=== PATIENT | female | born 1985 | race Caucasian/White ===

== ENCOUNTER → 2016-09-14 | Outpatient (CLI) | payer OTHER ==
[~2016-09-14] MED LIST: ACET50TA PO; ARMO90TA PO; CIPR500T89 PO; CLAR10CA3 PO; FLAG500T PO; IBUP-1114 PO; IBUP80TA PO; MULT1TAB8 PO
[2016-09-14 18:09] LABS: THYROXINE (T4) 9.5 UG/DL (4.5-12.0)
== END ==
LOC: M LAB 16:13
PROVIDERS: ATTEND Physician Assistant Medical
DX: E03.9 Hypothyroidism, unspecified (principal)

== ENCOUNTER 2016-10-17 15:17 | Emergency (ER) | payer OTHER ==
[~2016-10-17] VITALS: Ht 162.6 cm; Wt 104.3 kg
[2016-10-17] MEDS ORDERED: ARMO180T PO (15:29)
[2016-10-17] MEDS ORDERED: CLAR1TAB2 PO (15:29)
[2016-10-17] MEDS ORDERED: KEFL500C7 PO (17:13)
[2016-10-17] MEDS ORDERED: DERMABOND TOPICAL SKIN ADHESIVE TOP ONE (17:15)
[2016-10-17 17:20] VITALS: BP 134/88
== END 2016-10-17 17:30 | disposition home or self-care (01) ==
LOC: M ED 15:17
DX: S61.210A Laceration without foreign body of right index finger without damage to nail, initial encounter (principal); W29.0XXA Contact with powered kitchen appliance, initial encounter; Y92.019 Unspecified place in single-family (private) house as the place of occurrence of the external cause; Y93.G1 Activity, food preparation and clean up; Y99.8 Other external cause status; Z88.0 Allergy status to penicillin; Z88.5 Allergy status to narcotic agent; Z79.899 Other long term (current) drug therapy

== ENCOUNTER → 2016-11-09 | Outpatient (CLI) | payer OTHER ==
[~2016-11-09] MED LIST changes: +ARMO180T PO; +CLAR1TAB2 PO; +KEFL500C7 PO
== END ==
LOC: M LAB 14:52
PROVIDERS: ATTEND Physician Assistant Medical
DX: E03.9 Hypothyroidism, unspecified (principal)

== ENCOUNTER → 2017-01-08 | Outpatient (CLI) | payer OTHER ==
[2017-01-08 11:22] LABS: THYROXINE (T4) 6.4 UG/DL (4.5-12.0)
== END ==
LOC: M LAB 10:01
PROVIDERS: ATTEND Physician Assistant Medical
DX: E03.9 Hypothyroidism, unspecified (principal)

== ENCOUNTER → 2017-03-07 | Outpatient (CLI) | payer OTHER ==
[~2017-03-07] MED LIST changes: +CIPR-249 PO; -CIPR500T89 PO; +KEFL500C17 PO; -KEFL500C7 PO
== END ==
LOC: M LAB 11:59
PROVIDERS: ATTEND Physician Assistant Medical
DX: E03.9 Hypothyroidism, unspecified (principal)

== ENCOUNTER → 2017-04-25 | Outpatient (CLI) | payer OTHER ==
[2017-04-25 14:28] LABS: THYROXINE (T4) 6.9 UG/DL (4.5-12.0)
== END ==
LOC: M LAB 12:19
PROVIDERS: ATTEND Physician Assistant Medical
DX: E03.9 Hypothyroidism, unspecified (principal)

== ENCOUNTER → 2017-09-26 | Outpatient (CLI) | payer OTHER ==
[2017-09-26 14:50] LABS: T UPTAKE 26 % (30-39)
[2017-09-26 14:50] LABS: THYROXINE (T4) 7.7 UG/DL (4.5-12.0)
== END ==
LOC: M LAB 13:26
DX: E03.9 Hypothyroidism, unspecified (principal)

== ENCOUNTER → 2017-12-05 | Outpatient (REF) | payer OTHER, MEDICAID ==
[2017-12-05 11:55] LABS: BASO # 0.1 10^3/uL (0.0-0.2); BASO % 0.9 % (0.0-1.0); EOS # 0.4 10^3/uL (0.0-0.50); EOS % 3.4 % (0.0-3.0); HEMOGLOBIN 13.6 g/dl (12.0-15.5); IMMATURE GRANULOCYTE % 0.5 % (0-3.0); LYMPH # 2.4 10^3/uL (1.5-4.5); LYMPH % 21.8 % (24.0-44.0); MEAN CORPUSCULAR HEMOGLOBIN 28.2 pg (27.0-33.0); MEAN CORPUSCULAR HGB CONC 32.4 g/dl (32.0-36.5); MONO # 0.9 10^3/uL (0.0-0.8); MONO % 8.6 % (0.0-5.0); NEUTROPHILS # 7.1 10^3/uL (1.8-7.7); NEUTROPHILS % 64.8 % (36.0-66.0); PLATELET COUNT, AUTOMATED 445 10^3/uL (150-450); RED BLOOD COUNT 4.83 10^6/uL (4.00-5.40); WHITE BLOOD COUNT 10.9 10^3/uL (4.0-10.0)
[2017-12-05 14:00] LABS: ALBUMIN 4.2 GM/DL (3.2-5.2); ALBUMIN/GLOBULIN RATIO 1.17 (1.00-1.93); ALKALINE PHOSPHATASE 86 U/L (45-117); ALT/SGPT 27 U/L (12-78); ANION GAP 8 MEQ/L (8-16); AST/SGOT 14 U/L (7-37); BILIRUBIN,TOTAL 0.5 MG/DL (0.2-1.0); BLOOD UREA NITROGEN 16 MG/DL (7-18); CARBON DIOXIDE LEVEL 27 MEQ/L (21-32); CHLORIDE LEVEL 104 MEQ/L (98-107); CHOLESTEROL LEVEL 181 MG/DL (<200); CHOLESTEROL RISK RATIO 2.967 (<5); CREATININE FOR GFR 0.64 MG/DL (0.55-1.30); FREE T4 0.72 NG/DL (0.76-1.46); GLOMERULAR FILTRATION RATE > 60.0 (>60); GLUCOSE, FASTING 90 MG/DL (70-100); HDL CHOLESTEROL 61 MG/DL (>40); LDL CHOLESTEROL 88.8 MG/DL (<100); NON-HDL-C 120 MG/DL; POTASSIUM SERUM 4.1 MEQ/L (3.5-5.1); SODIUM LEVEL 139 MEQ/L (136-145); THYROXINE (T4) 7.3 UG/DL (4.5-12.0); TOTAL PROTEIN 7.8 GM/DL (6.4-8.2); TRIGLYCERIDES LEVEL 156 MG/DL (<150)
[2017-12-05 15:16] LABS: ESTIMATED AVERAGE GLUCOSE 97 MG/DL (60-110)
[2017-12-07 10:33] LABS: TOTAL T3 109.2 NG/DL (60.0-181.0)
== END ==
LOC: M LAB REF 11:08
DX: Z68.41 Body mass index [BMI] 40.0-44.9, adult (principal); R61 Generalized hyperhidrosis
CPT/HCPCS: 84443

== ENCOUNTER → 2017-12-05 | Outpatient (CLI) | payer OTHER | LOC: M EKG 09:12 | DX: Z68.41 Body mass index [BMI] 40.0-44.9, adult (principal) | CPT/HCPCS: 93005 ==

== ENCOUNTER → 2018-01-04 | Outpatient (CLI) | payer OTHER, MEDICAID ==
[2018-01-04 12:11] LABS: BASO # 0.1 10^3/uL (0.0-0.2); BASO % 0.9 % (0.0-1.0); EOS # 0.2 10^3/uL (0.0-0.50); EOS % 3.4 % (0.0-3.0); HEMATOCRIT 38.1 % (36.0-47.0); HEMOGLOBIN 12.3 g/dl (12.0-15.5); IMMATURE GRANULOCYTE % 0.2 % (0-3.0); LYMPH # 1.5 10^3/uL (1.5-4.5); LYMPH % 25.5 % (24.0-44.0); MEAN CORPUSCULAR HGB CONC 32.3 g/dl (32.0-36.5); MEAN CORPUSCULAR VOLUME 86.8 fl (80.0-96.0); MONO # 0.7 10^3/uL (0.0-0.8); MONO % 11.5 % (0.0-5.0); NEUTROPHILS # 3.4 10^3/uL (1.8-7.7); NEUTROPHILS % 58.5 % (36.0-66.0); PLATELET COUNT, AUTOMATED 322 10^3/uL (150-450); RED BLOOD COUNT 4.39 10^6/uL (4.00-5.40); RED CELL DISTRIBUTION WIDTH 15.4 % (11.5-14.5); WHITE BLOOD COUNT 5.8 10^3/uL (4.0-10.0)
[2018-01-04 12:13] LABS: HEMATOCRIT 38.1 % (36.0-47.0)
[2018-01-04 12:43] LABS: TOTAL 25(OH) VITAMIN D 84.6 NG/ML (30.0-100.0); VITAMIN B12 LEVEL 699 PG/ML (247-911)
[2018-01-04 12:50] LABS: ALBUMIN 3.7 GM/DL (3.2-5.2); ALBUMIN/GLOBULIN RATIO 1.16 (1.00-1.93); ALKALINE PHOSPHATASE 60 U/L (45-117); ALT/SGPT 30 U/L (12-78); ANION GAP 8 MEQ/L (8-16); AST/SGOT 15 U/L (7-37); BILIRUBIN,TOTAL 0.5 MG/DL (0.2-1.0); BLOOD UREA NITROGEN 9 MG/DL (7-18); CALCIUM LEVEL 8.6 MG/DL (8.5-10.1); CARBON DIOXIDE LEVEL 27 MEQ/L (21-32); CHLORIDE LEVEL 109 MEQ/L (98-107); CREATININE FOR GFR 0.58 MG/DL (0.55-1.30); FERRITIN 183 NG/ML (8-252); GLOMERULAR FILTRATION RATE > 60.0 (>60); GLUCOSE, FASTING 84 MG/DL (70-100); IRON (FE) 48 UG/DL (50-170); MAGNESIUM LEVEL 2.2 MG/DL (1.8-2.4); PERCENT SATURATION 19.9 % (13.2-45.0); PHOSPHORUS LEVEL 3.2 MG/DL (2.5-4.9); POTASSIUM SERUM 3.6 MEQ/L (3.5-5.1); SODIUM LEVEL 144 MEQ/L (136-145); TOTAL IRON BINDING CAPACITY 241 UG/DL (250-450); TOTAL PROTEIN 6.9 GM/DL (6.4-8.2)
[2018-01-04 13:30] LABS: ESTIMATED AVERAGE GLUCOSE 88 MG/DL (60-110); HEMOGLOBIN A1c 4.7 %
[2018-01-04 14:19] LABS: PRETREATED FOLATE FOR RBCFOL 15.2 NG/ML; RBC FOLATE 837.8 NG/ML (280-791)
== END ==
LOC: M LAB 11:07
DX: K91.2 Postsurgical malabsorption, not elsewhere classified (principal); Z98.84 Bariatric surgery status; E55.9 Vitamin D deficiency, unspecified
CPT/HCPCS: 83550

== ENCOUNTER 2018-05-02 20:32 | Emergency (ER) | payer OTHER | END 2018-05-03 00:40 | disposition home or self-care (01) | LOC: M ED 05-03 00:40 | DX: S60.221A Contusion of right hand, initial encounter (principal); W22.8XXA Striking against or struck by other objects, initial encounter; Y92.830 Public park as the place of occurrence of the external cause; Z88.0 Allergy status to penicillin; Z88.5 Allergy status to narcotic agent; J30.89 Other allergic rhinitis | CPT/HCPCS: 73130 ==

== ENCOUNTER → 2018-05-15 | Outpatient (REF) | payer OTHER ==
[2018-05-15 19:20] LABS: FREE THYROXINE INDEX 1.7 % (1.3-4.8); T UPTAKE 30 % (30-39); THYROXINE (T4) 5.6 UG/DL (4.5-12.0)
== END ==
LOC: M LAB REF 17:49
DX: E03.9 Hypothyroidism, unspecified (principal)

== ENCOUNTER → 2018-06-05 | Outpatient (CLI) | payer OTHER ==
[2018-06-05 11:47] LABS: BASO # 0.1 10^3/uL (0.0-0.2); BASO % 0.8 % (0.0-1.0); EOS # 0.1 10^3/uL (0.0-0.50); HEMATOCRIT 41.2 % (36.0-47.0); HEMOGLOBIN 13.4 g/dl (12.0-15.5); IMMATURE GRANULOCYTE % 0.4 % (0-3.0); LYMPH # 1.9 10^3/uL (1.5-4.5); LYMPH % 26.4 % (24.0-44.0); MEAN CORPUSCULAR HEMOGLOBIN 29.1 pg (27.0-33.0); MEAN CORPUSCULAR HGB CONC 32.5 g/dl (32.0-36.5); MEAN CORPUSCULAR VOLUME 89.6 fl (80.0-96.0); MONO # 0.6 10^3/uL (0.0-0.8); MONO % 8.2 % (0.0-5.0); NEUTROPHILS # 4.4 10^3/uL (1.8-7.7); NEUTROPHILS % 62.2 % (36.0-66.0); PLATELET COUNT, AUTOMATED 406 10^3/uL (150-450); RED CELL DISTRIBUTION WIDTH 13.2 % (11.5-14.5); WHITE BLOOD COUNT 7.1 10^3/uL (4.0-10.0)
[2018-06-05 12:03] LABS: HEMATOCRIT 41.2 % (36.0-47.0)
[2018-06-05 12:51] LABS: ALBUMIN 3.9 GM/DL (3.2-5.2); ALBUMIN/GLOBULIN RATIO 1.08 (1.00-1.93); ALKALINE PHOSPHATASE 105 U/L (45-117); ALT/SGPT 25 U/L (12-78); ANION GAP 9 MEQ/L (8-16); AST/SGOT 15 U/L (7-37); BILIRUBIN,TOTAL 0.8 MG/DL (0.2-1.0); BLOOD UREA NITROGEN 9 MG/DL (7-18); CALCIUM LEVEL 8.8 MG/DL (8.5-10.1); CARBON DIOXIDE LEVEL 25 MEQ/L (21-32); CHLORIDE LEVEL 106 MEQ/L (98-107); CREATININE FOR GFR 0.58 MG/DL (0.55-1.30); FERRITIN 157 NG/ML (8-252); GLOMERULAR FILTRATION RATE > 60.0 (>60); GLUCOSE, FASTING 97 MG/DL (70-100); IRON (FE) 96 UG/DL (50-170); PERCENT SATURATION 29.2 % (13.2-45.0); PHOSPHORUS LEVEL 3.7 MG/DL (2.5-4.9); POTASSIUM SERUM 4.6 MEQ/L (3.5-5.1); SODIUM LEVEL 140 MEQ/L (136-145); TOTAL 25(OH) VITAMIN D 79.1 NG/ML (30.0-100.0); TOTAL IRON BINDING CAPACITY 329 UG/DL (250-450); TOTAL PROTEIN 7.5 GM/DL (6.4-8.2)
[2018-06-05 13:15] LABS: ESTIMATED AVERAGE GLUCOSE 97 MG/DL (60-110)
== END ==
LOC: M LAB 11:06
DX: K90.2 Blind loop syndrome, not elsewhere classified (principal)
CPT/HCPCS: 83550

== ENCOUNTER → 2018-08-15 | Outpatient (REF) | payer OTHER ==
[~2018-08-15] MED LIST changes: -ACET50TA PO; +MAPA500T2 PO
[2018-08-17 15:11] LABS: HPV HYBRID CAPTURE II Negative (Negative)
== END ==
LOC: M LAB REF 11:50
PROVIDERS: ATTEND Nurse Practitioner Family
DX: Z12.4 Encounter for screening for malignant neoplasm of cervix (principal)

== ENCOUNTER → 2018-09-24 | Outpatient (REF) | payer OTHER, MEDICAID | LOC: M LAB REF 18:51 | PROVIDERS: ATTEND Nurse Practitioner Family | DX: Z53.9 Procedure and treatment not carried out, unspecified reason (principal) ==

== ENCOUNTER → 2018-10-08 | Outpatient (REF) | payer OTHER, MEDICAID | LOC: M LAB REF 17:32 | PROVIDERS: ATTEND Nurse Practitioner Family | DX: E03.9 Hypothyroidism, unspecified (principal) ==

== ENCOUNTER → 2019-01-23 | Outpatient (CLI) | payer MEDICAID, OTHER ==
[~2019-01-23] MED LIST changes: +THYR60TA PO
[2019-01-23 14:56] LABS: BASO # 0.1 10^3/uL (0.0-0.2); BASO % 0.5 % (0.0-1.0); EOS # 0.2 10^3/uL (0.0-0.50); EOS % 1.5 % (0.0-3.0); HEMATOCRIT 40.7 % (36.0-47.0); HEMOGLOBIN 13.4 g/dl (12.0-15.5); LYMPH # 1.6 10^3/uL (1.5-4.5); LYMPH % 12.7 % (24.0-44.0); MEAN CORPUSCULAR HEMOGLOBIN 30.2 pg (27.0-33.0); MEAN CORPUSCULAR HGB CONC 32.9 g/dl (32.0-36.5); MEAN CORPUSCULAR VOLUME 91.9 fl (80.0-96.0); MONO # 0.9 10^3/uL (0.0-0.8); MONO % 7.6 % (0.0-5.0); NEUTROPHILS # 9.5 10^3/uL (1.8-7.7); NEUTROPHILS % 77.2 % (36.0-66.0); PLATELET COUNT, AUTOMATED 358 10^3/uL (150-450); RED BLOOD COUNT 4.43 10^6/uL (4.00-5.40); WHITE BLOOD COUNT 12.3 10^3/uL (4.0-10.0)
[2019-01-23 15:01] LABS: HEMATOCRIT 40.7 % (36.0-47.0)
[2019-01-23 15:20] LABS: HEMOGLOBIN A1c 5.1 %
[2019-01-23 15:24] LABS: ALBUMIN 3.7 GM/DL (3.2-5.2); ALT/SGPT 18 U/L (12-78); BILIRUBIN,TOTAL 1.1 MG/DL (0.2-1.0); BLOOD UREA NITROGEN 11 MG/DL (7-18); CARBON DIOXIDE LEVEL 26 MEQ/L (21-32); CHLORIDE LEVEL 103 MEQ/L (98-107); CREATININE FOR GFR 0.65 MG/DL (0.55-1.30); FERRITIN 169 NG/ML (8-252); GLOMERULAR FILTRATION RATE > 60.0 (>60); GLUCOSE, FASTING 89 MG/DL (70-100); IRON (FE) 29 UG/DL (50-170); PERCENT SATURATION 8.9 % (13.2-45.0); PHOSPHORUS LEVEL 4.3 MG/DL (2.5-4.9); POTASSIUM SERUM 4.5 MEQ/L (3.5-5.1); SODIUM LEVEL 139 MEQ/L (136-145); TOTAL IRON BINDING CAPACITY 325 UG/DL (250-450); TOTAL PROTEIN 7.5 GM/DL (6.4-8.2)
[2019-01-23 15:32] LABS: TOTAL 25(OH) VITAMIN D 101.9 NG/ML (30.0-100.0); VITAMIN B12 LEVEL 1007 PG/ML (247-911)
== END ==
LOC: M LAB 14:15
PROVIDERS: ATTEND Physician Assistant Surgical
DX: K91.2 Postsurgical malabsorption, not elsewhere classified (principal); Z98.84 Bariatric surgery status; E55.9 Vitamin D deficiency, unspecified

== ENCOUNTER 2019-01-27 16:46 | Emergency (ER) | payer OTHER ==
[~2019-01-27] VITALS: Ht 162.6 cm; Wt 77.3 kg
[~2019-01-27 16:46] MED LIST changes: -THYR60TA PO
[2019-01-27] MEDS ORDERED: THYR60TA PO (17:14)
[2019-01-27 19:03] VITALS: BP 128/79
== END 2019-01-27 19:04 | disposition home or self-care (01) ==
LOC: M ED 16:46
DX: Z04.1 Encounter for examination and observation following transport accident (principal); V03.10XA Pedestrian on foot injured in collision with car, pick-up truck or van in traffic accident, initial encounter; Y92.410 Unspecified street and highway as the place of occurrence of the external cause; M25.552 Pain in left hip; J45.909 Unspecified asthma, uncomplicated; E03.9 Hypothyroidism, unspecified; Z79.899 Other long term (current) drug therapy; Z88.0 Allergy status to penicillin; Z88.5 Allergy status to narcotic agent

== ENCOUNTER 2019-03-03 18:14 | Emergency (ER) | payer OTHER ==
[~2019-03-03] VITALS: Ht 162.6 cm; Wt 75.5 kg
[~2019-03-03 18:14] MED LIST changes: +THYR60TA PO
[2019-03-03 20:04] LABS: HCG, SERUM QUALITATIVE POSITIVE (NEGATIVE)
[2019-03-03 20:23] LABS: BASO # 0.1 10^3/uL (0.0-0.2); BASO % 0.5 % (0.0-1.0); EOS % 0.3 % (0.0-3.0); HEMATOCRIT 37.9 % (36.0-47.0); LYMPH % 16.3 % (24.0-44.0); MEAN CORPUSCULAR HGB CONC 34.3 g/dl (32.0-36.5); MEAN CORPUSCULAR VOLUME 87.5 fl (80.0-96.0); MONO # 0.8 10^3/uL (0.0-0.8); MONO % 6.3 % (0.0-5.0); NEUTROPHILS # 9.2 10^3/uL (1.8-7.7); NEUTROPHILS % 76.4 % (36.0-66.0); PLATELET COUNT, AUTOMATED 422 10^3/uL (150-450); RED BLOOD COUNT 4.33 10^6/uL (4.00-5.40); WHITE BLOOD COUNT 12.1 10^3/uL (4.0-10.0)
[2019-03-03 20:26] LABS: ALBUMIN 3.9 GM/DL (3.2-5.2); ALT/SGPT 20 U/L (12-78); BLOOD UREA NITROGEN 12 MG/DL (7-18); CALCIUM LEVEL 9.4 MG/DL (8.5-10.1); CARBON DIOXIDE LEVEL 26 MEQ/L (21-32); CHLORIDE LEVEL 107 MEQ/L (98-107); CREATININE FOR GFR 0.52 MG/DL (0.55-1.30); GLOMERULAR FILTRATION RATE > 60.0 (>60); GLUCOSE, FASTING 89 MG/DL (70-100); POTASSIUM SERUM 4.7 MEQ/L (3.5-5.1); SODIUM LEVEL 140 MEQ/L (136-145); TOTAL PROTEIN 7.2 GM/DL (6.4-8.2)
[2019-03-03] MEDS ORDERED: cefTRIAXone SOD 250 MG VIAL (J0696) IM ONE (21:45)
[2019-03-03] MEDS ORDERED: metroNIDAZOLE (FLAGYL) 500 MG TAB PO ONE (21:45)
[2019-03-03] MEDS ORDERED: LIDOCAINE 1% SDV 5 ML VIAL DILUENT ONE (21:45)
[2019-03-03] MEDS ORDERED: AZITHROMYCIN 250 MG TAB PO ONE (21:45)
[2019-03-03 21:58] VITALS: BP 118/78
[2019-03-05 11:15] LABS: HEPATITIS B SURFACE ANTIBODY NEGATIVE (POSITIVE)
[2019-03-05 11:26] LABS: HEPATITIS B SURFACE ANTIGEN NEGATIVE (NEGATIVE)
[2019-03-05 11:53] LABS: HEPATITIS C VIRUS ABY INDEX 0.1 INDEX (<0.8); HIV 1&2 SCREEN CENTAUR NEGATIVE (NEGATIVE)
== END 2019-03-03 22:44 | disposition home or self-care (01) ==
LOC: M ED 18:14 → EEVIPCON 18:14 → M ED 22:44
DX: T74.21XA Adult sexual abuse, confirmed, initial encounter (principal); Y07.9 Unspecified perpetrator of maltreatment and neglect; Y92.830 Public park as the place of occurrence of the external cause; Z32.01 Encounter for pregnancy test, result positive; Z98.84 Bariatric surgery status; Z79.899 Other long term (current) drug therapy; Z88.5 Allergy status to narcotic agent; Z88.0 Allergy status to penicillin; J30.89 Other allergic rhinitis
CPT/HCPCS: 36415; 80053; 84702; 84703; 85025; 86706; 86780; 86803; 87340; 87389; 87529; 96372; 99284; J0696

== ENCOUNTER → 2019-04-28 | Outpatient (CLI) | payer OTHER ==
[2019-04-28 12:48] LABS: BASO # 0.1 10^3/uL (0.0-0.2); BASO % 0.9 % (0.0-1.0); EOS # 0.2 10^3/uL (0.0-0.5); EOS % 2.2 % (0.0-3.0); HEMATOCRIT 40.4 % (36.0-47.0); HEMOGLOBIN 13.4 g/dl (12.0-15.5); LYMPH # 2.1 10^3/uL (1.5-5.0); LYMPH % 27.4 % (24.0-44.0); MEAN CORPUSCULAR HEMOGLOBIN 30.7 pg (27.0-33.0); MEAN CORPUSCULAR HGB CONC 33.2 g/dl (32.0-36.5); MEAN CORPUSCULAR VOLUME 92.7 fl (80.0-96.0); MONO # 0.9 10^3/uL (0.0-0.8); MONO % 11.8 % (0.0-5.0); NEUTROPHILS # 4.4 10^3/uL (1.5-8.5); NEUTROPHILS % 57.4 % (36.0-66.0); PLATELET COUNT, AUTOMATED 352 10^3/uL (150-450); RED BLOOD COUNT 4.36 10^6/uL (4.00-5.40); WHITE BLOOD COUNT 7.7 10^3/uL (4.0-10.0)
[2019-04-28 13:18] LABS: ALBUMIN 3.9 GM/DL (3.2-5.2); ALT/SGPT 23 U/L (12-78); BLOOD UREA NITROGEN 15 MG/DL (7-18); CALCIUM LEVEL 9.2 MG/DL (8.5-10.1); CARBON DIOXIDE LEVEL 27 MEQ/L (21-32); CHLORIDE LEVEL 105 MEQ/L (98-107); CHOLESTEROL LEVEL 189 MG/DL (<200); CHOLESTEROL RISK RATIO 2.625 (<5); CREATININE FOR GFR 0.68 MG/DL (0.55-1.30); FREE T4 0.71 NG/DL (0.76-1.46); GLOMERULAR FILTRATION RATE > 60.0 (>60); GLUCOSE, FASTING 68 MG/DL (70-100); HDL CHOLESTEROL 72 MG/DL (>40); LDL CHOLESTEROL 105 MG/DL (<100); NON-HDL-C 117 MG/DL; POTASSIUM SERUM 4.5 MEQ/L (3.5-5.1); SODIUM LEVEL 141 MEQ/L (136-145); TOTAL PROTEIN 6.9 GM/DL (6.4-8.2); TRIGLYCERIDES LEVEL 60 MG/DL (<150)
== END ==
LOC: M LAB 11:50
PROVIDERS: ATTEND Nurse Practitioner Family
DX: Z13.9 Encounter for screening, unspecified (principal); E78.5 Hyperlipidemia, unspecified; E03.9 Hypothyroidism, unspecified

== ENCOUNTER → 2019-07-24 | Outpatient (REF) | payer OTHER ==
[2019-07-24 14:13] LABS: BASO # 0.1 10^3/uL (0.0-0.2); EOS # 0.3 10^3/uL (0.0-0.5); EOS % 4.3 % (0.0-3.0); HEMOGLOBIN 12.7 g/dl (12.0-15.5); LYMPH # 2.2 10^3/uL (1.5-5.0); LYMPH % 32.3 % (24.0-44.0); MEAN CORPUSCULAR HEMOGLOBIN 29.3 pg (27.0-33.0); MEAN CORPUSCULAR HGB CONC 32.6 g/dl (32.0-36.5); MEAN CORPUSCULAR VOLUME 89.9 fl (80.0-96.0); MONO # 0.7 10^3/uL (0.0-0.8); NEUTROPHILS # 3.6 10^3/uL (1.5-8.5); NEUTROPHILS % 52.1 % (36.0-66.0); PLATELET COUNT, AUTOMATED 426 10^3/uL (150-450); RED BLOOD COUNT 4.34 10^6/uL (4.00-5.40); WHITE BLOOD COUNT 6.8 10^3/uL (4.0-10.0)
[2019-07-24 14:20] LABS: ALBUMIN 3.6 GM/DL (3.2-5.2); ALT/SGPT 24 U/L (12-78); BILIRUBIN,TOTAL 1.1 MG/DL (0.2-1.0); BLOOD UREA NITROGEN 11 MG/DL (7-18); CARBON DIOXIDE LEVEL 28 MEQ/L (21-32); CHLORIDE LEVEL 103 MEQ/L (98-107); CHOLESTEROL LEVEL 169 MG/DL (<200); CHOLESTEROL RISK RATIO 2.725 (<5); CREATININE FOR GFR 0.64 MG/DL (0.55-1.30); FREE T4 0.79 NG/DL (0.76-1.46); GLOMERULAR FILTRATION RATE > 60.0 (>60); GLUCOSE, FASTING 87 MG/DL (70-100); HDL CHOLESTEROL 62 MG/DL (>40); LDL CHOLESTEROL 96 MG/DL (<100); NON-HDL-C 107 MG/DL; POTASSIUM SERUM 4.1 MEQ/L (3.5-5.1); SODIUM LEVEL 139 MEQ/L (136-145); TRIGLYCERIDES LEVEL 57 MG/DL (<150)
== END ==
LOC: M LAB REF 13:45
PROVIDERS: ATTEND Nurse Practitioner Family
DX: E66.09 Other obesity due to excess calories (principal); Z13.9 Encounter for screening, unspecified; E78.5 Hyperlipidemia, unspecified

== ENCOUNTER → 2019-07-31 | Outpatient (REF) | payer OTHER ==
[2019-07-31 18:56] LABS: FREE T4 0.92 NG/DL (0.76-1.46); THYROID STIMULATING HORMONE 2.45 uIU/ML (0.358-3.740); TOTAL T3 178.5 NG/DL (60.0-181.0)
== END ==
LOC: M LAB REF 17:24
PROVIDERS: ATTEND Nurse Practitioner Family
DX: E03.9 Hypothyroidism, unspecified (principal)

== ENCOUNTER → 2019-12-01 | Outpatient (REF) | payer OTHER, MEDICAID ==
[2019-12-01 13:12] LABS: BASO % 0.7 % (0.0-1.0); EOS # 0.2 10^3/uL (0.0-0.5); HEMATOCRIT 40.3 % (36.0-47.0); HEMOGLOBIN 12.9 g/dl (12.0-15.5); LYMPH # 1.8 10^3/uL (1.5-5.0); LYMPH % 30.1 % (24.0-44.0); MEAN CORPUSCULAR HEMOGLOBIN 29.3 pg (27.0-33.0); MEAN CORPUSCULAR VOLUME 91.4 fl (80.0-96.0); MONO # 0.7 10^3/uL (0.0-0.8); MONO % 10.9 % (0.0-5.0); NEUTROPHILS # 3.3 10^3/uL (1.5-8.5); NEUTROPHILS % 55.1 % (36.0-66.0); PLATELET COUNT, AUTOMATED 339 10^3/uL (150-450); RED BLOOD COUNT 4.41 10^6/uL (4.00-5.40)
[2019-12-01 13:28] LABS: ALBUMIN 3.8 GM/DL (3.2-5.2); ALT/SGPT 22 U/L (12-78); BILIRUBIN,TOTAL 1.2 MG/DL (0.2-1.0); BLOOD UREA NITROGEN 16 MG/DL (7-18); CALCIUM LEVEL 9.2 MG/DL (8.5-10.1); CARBON DIOXIDE LEVEL 28 MEQ/L (21-32); CHLORIDE LEVEL 103 MEQ/L (98-107); CHOLESTEROL LEVEL 193 MG/DL (<200); CHOLESTEROL RISK RATIO 2.443 (<5); CREATININE FOR GFR 0.58 MG/DL (0.55-1.30); FREE T4 0.79 NG/DL (0.76-1.46); GLOMERULAR FILTRATION RATE > 60.0 (>60); GLUCOSE, FASTING 90 MG/DL (70-100); HDL CHOLESTEROL 79 MG/DL (>40); LDL CHOLESTEROL 106 MG/DL (<100); NON-HDL-C 114 MG/DL; POTASSIUM SERUM 4.2 MEQ/L (3.5-5.1); SODIUM LEVEL 136 MEQ/L (136-145); TOTAL PROTEIN 7.3 GM/DL (6.4-8.2); TRIGLYCERIDES LEVEL 42 MG/DL (<150)
== END ==
LOC: M LAB REF 12:25
PROVIDERS: ATTEND Nurse Practitioner Family
DX: E03.9 Hypothyroidism, unspecified (principal); E66.09 Other obesity due to excess calories; E78.5 Hyperlipidemia, unspecified; Z13.9 Encounter for screening, unspecified; F41.8 Other specified anxiety disorders

== ENCOUNTER → 2020-06-25 | Outpatient (REF) | payer OTHER, MEDICAID ==
[2020-06-25 17:21] LABS: BASO # 0.1 10^3/uL (0.0-0.2); BASO % 0.7 % (0.0-1.0); EOS # 0.1 10^3/uL (0.0-0.5); HEMATOCRIT 38.2 % (36.0-47.0); HEMOGLOBIN 12.7 g/dl (12.0-15.5); LYMPH # 1.7 10^3/uL (1.5-5.0); MEAN CORPUSCULAR HEMOGLOBIN 30.2 pg (27.0-33.0); MEAN CORPUSCULAR HGB CONC 33.2 g/dl (32.0-36.5); MEAN CORPUSCULAR VOLUME 90.7 fl (80.0-96.0); MONO # 0.8 10^3/uL (0.0-0.8); MONO % 9.7 % (0.0-5.0); NEUTROPHILS # 5.5 10^3/uL (1.5-8.5); NEUTROPHILS % 67.2 % (36.0-66.0); PLATELET COUNT, AUTOMATED 365 10^3/uL (150-450); RED BLOOD COUNT 4.21 10^6/uL (4.00-5.40); WHITE BLOOD COUNT 8.1 10^3/uL (4.0-10.0)
[2020-06-25 17:35] LABS: ALT/SGPT 21 U/L (12-78); BILIRUBIN,TOTAL 1.4 MG/DL (0.2-1.0); BLOOD UREA NITROGEN 9 MG/DL (7-18); CALCIUM LEVEL 9.3 MG/DL (8.5-10.1); CARBON DIOXIDE LEVEL 28 MEQ/L (21-32); CHLORIDE LEVEL 101 MEQ/L (98-107); CHOLESTEROL LEVEL 188 MG/DL (<200); CHOLESTEROL RISK RATIO 2.211 (<5); CREATININE FOR GFR 0.57 MG/DL (0.55-1.30); FERRITIN 59 NG/ML (8-252); FREE T4 0.87 NG/DL (0.76-1.46); GLOMERULAR FILTRATION RATE > 60.0 (>60); GLUCOSE, FASTING 84 MG/DL (70-100); HDL CHOLESTEROL 85 MG/DL (>40); IRON (FE) 106 UG/DL (50-170); LDL CHOLESTEROL 89 MG/DL (<100); NON-HDL-C 103 MG/DL; PERCENT SATURATION 27.9 % (13.2-45.0); SODIUM LEVEL 135 MEQ/L (136-145); TOTAL IRON BINDING CAPACITY 380 UG/DL (250-450); TOTAL PROTEIN 7.4 GM/DL (6.4-8.2); TRIGLYCERIDES LEVEL 70 MG/DL (<150)
[2020-06-25 17:37] LABS: TOTAL 25(OH) VITAMIN D 70.1 NG/ML (30.0-100.0); VITAMIN B12 LEVEL > 2000 PG/ML
[2020-06-25 17:39] LABS: FOLATE 23.2 NG/ML
== END ==
LOC: M LAB REF 16:39
PROVIDERS: ATTEND Nurse Practitioner Family
DX: Z98.84 Bariatric surgery status (principal); E66.09 Other obesity due to excess calories; E78.5 Hyperlipidemia, unspecified; E03.9 Hypothyroidism, unspecified; F41.8 Other specified anxiety disorders

== ENCOUNTER → 2020-07-28 | Outpatient (REF) | payer OTHER ==
[2020-07-28 17:20] LABS: FREE T4 0.82 NG/DL (0.76-1.46); HEMATOCRIT 37.6 % (36.0-47.0); HEMOGLOBIN 11.9 g/dl (12.0-15.5); MEAN CORPUSCULAR HEMOGLOBIN 28.9 pg (27.0-33.0); MEAN CORPUSCULAR HGB CONC 31.6 g/dl (32.0-36.5); MEAN CORPUSCULAR VOLUME 91.3 fl (80.0-96.0); PLATELET COUNT, AUTOMATED 347 10^3/uL (150-450); RED BLOOD COUNT 4.12 10^6/uL (4.00-5.40); THYROID STIMULATING HORMONE 0.887 uIU/ML (0.358-3.740); WHITE BLOOD COUNT 10.8 10^3/uL (4.0-10.0)
[2020-07-28 18:03] LABS: HEPATITIS C VIRUS ABY INDEX < 0.0 INDEX (<0.8); HIV 1&2 SCREEN CENTAUR NEGATIVE (NEGATIVE)
== END ==
LOC: M PLALAB 14:27
PROVIDERS: ATTEND Obstetrics & Gynecology
DX: Z3A.11 11 weeks gestation of pregnancy (principal)

== ENCOUNTER → 2020-08-06 | Outpatient (CLI) | payer OTHER ==
--- NOTE | 2020-08-06 16:53 | REP ---
INDICATION: CONFIRM CHORIONICITY,TWINS. TECHNIQUE: Real-time sonographic evaluation of the gravid uterus performed. FINDINGS: There is a living intrauterine twin gestation, diamniotic dichorionic. Estimated gestational age is13 weeks 1 day, EDC 02/10/2021. Today's measurements indicate appropriate concordant growth. Closed cervical length is measured at 4.2 cm. Fetus a: Presentation: Cephalic, on the left. Placenta anterior, grade 0, without evidence of placenta previa. heart rate is recorded at 165 beats per minute. Amniotic fluid is subjectively normal. Kershaw-rump length 70 mm corresponds to 13 weeks 1 day gestational age. Fetus b: Presentation: Transverse anteriorly to the right Placenta posterior, grade 0, without evidence of placenta previa. heart rate is recorded at 167 beats per minute. Amniotic fluid is subjectively normal. Kershaw-rump length 61 mm corresponds to 12 weeks 4 days gestational age. IMPRESSION: Viable diamniotic dichorionic intrauterine twin gestation as above. <Electronically signed by Jacky Frazier > 08/06/20 [id number]
== END ==
LOC: M WHC 14:42
PROVIDERS: ATTEND Obstetrics & Gynecology
DX: Z3A.11 11 weeks gestation of pregnancy (principal)

== ENCOUNTER → 2020-08-25 | Outpatient (CLI) | payer OTHER | LOC: M WHC 13:57 | PROVIDERS: ATTEND Obstetrics & Gynecology | DX: Z3A.15 15 weeks gestation of pregnancy (principal); Z53.9 Procedure and treatment not carried out, unspecified reason ==

== ENCOUNTER → 2020-08-30 | Outpatient (REF) | payer OTHER ==
[2020-08-30 13:00] LABS: APPEARANCE, URINE CLEAR (CLEAR); BACTERIA, URINE AUTO NEGATIVE (NEGATIVE); BILIRUBIN, URINE AUTO NEGATIVE (NEGATIVE); BLOOD, URINE BLOOD NEGATIVE (NEGATIVE); COLOR, URINE STRAW (YELLOW); GLUCOSE, URINE (UA) AUTO NEGATIVE (NEGATIVE); KETONE, URINE AUTO NEGATIVE (NEGATIVE); LEUKOCYTE ESTERASE, URINE AUTO 2+ (NEGATIVE); NITRITE, URINE AUTO NEGATIVE (NEGATIVE); PROTEIN, URINE AUTO NEGATIVE (NEGATIVE); RBC, URINE AUTO 0 /HPF (0-3); SPECIFIC GRAVITY URINE AUTO 1.008 (1.002-1.035); SQUAMOUS EPITHELIAL CELL UR AU 3 /HPF (0-6); UROBILINOGEN, URINE AUTO 0.2 mg/dL (0.0-2.0); WBC, URINE AUTO 2 /HPF (0-3)
[2020-08-30 17:08] LABS: ALBUMIN 3.1 GM/DL (3.2-5.2); ALT/SGPT 15 U/L (12-78); BILIRUBIN,TOTAL 0.7 MG/DL (0.2-1.0); BLOOD UREA NITROGEN 9 MG/DL (7-18); CALCIUM LEVEL 8.7 MG/DL (8.5-10.1); CARBON DIOXIDE LEVEL 27 MEQ/L (21-32); CHLORIDE LEVEL 105 MEQ/L (98-107); CHOLESTEROL LEVEL 222 MG/DL (<200); CHOLESTEROL RISK RATIO 2.288 (<5); CREATININE FOR GFR 0.54 MG/DL (0.55-1.30); FERRITIN 20 NG/ML (8-252); FOLATE > 24.0 NG/ML; GLOMERULAR FILTRATION RATE > 60.0 (>60); GLUCOSE, FASTING 99 MG/DL (70-100); HDL CHOLESTEROL 97 MG/DL (>40); IRON (FE) 65 UG/DL (50-170); LDL CHOLESTEROL 106 MG/DL (<100); NON-HDL-C 125 MG/DL; PERCENT SATURATION 17.2 % (13.2-45.0); POTASSIUM SERUM 3.8 MEQ/L (3.5-5.1); SODIUM LEVEL 137 MEQ/L (136-145); TOTAL IRON BINDING CAPACITY 379 UG/DL (250-450); TOTAL PROTEIN 6.4 GM/DL (6.4-8.2); TRIGLYCERIDES LEVEL 97 MG/DL (<150); VITAMIN B12 LEVEL > 2000 PG/ML
[2020-08-30 17:13] LABS: BASO # 0.1 10^3/uL (0.0-0.2); BASO % 0.5 % (0.0-1.0); EOS # 0.1 10^3/uL (0.0-0.5); EOS % 1.4 % (0.0-3.0); HEMATOCRIT 35.2 % (36.0-47.0); HEMOGLOBIN 11.5 g/dl (12.0-15.5); LYMPH # 1.5 10^3/uL (1.5-5.0); LYMPH % 16.3 % (24.0-44.0); MEAN CORPUSCULAR HEMOGLOBIN 30.4 pg (27.0-33.0); MEAN CORPUSCULAR HGB CONC 32.7 g/dl (32.0-36.5); MEAN CORPUSCULAR VOLUME 93.1 fl (80.0-96.0); MONO # 0.6 10^3/uL (0.0-0.8); MONO % 6.6 % (0.0-5.0); NEUTROPHILS % 74.8 % (36.0-66.0); PLATELET COUNT, AUTOMATED 283 10^3/uL (150-450); RED BLOOD COUNT 3.78 10^6/uL (4.00-5.40); WHITE BLOOD COUNT 9.3 10^3/uL (4.0-10.0)
[2020-08-30 17:23] LABS: TOTAL 25(OH) VITAMIN D 58.6 NG/ML (30.0-100.0)
[2020-08-30 18:20] LABS: HEMOGLOBIN A1c 4.7 %
== END ==
LOC: M LAB REF 11:35
PROVIDERS: ATTEND Nurse Practitioner Family
DX: E78.5 Hyperlipidemia, unspecified (principal); Z98.84 Bariatric surgery status; E66.09 Other obesity due to excess calories; Z13.9 Encounter for screening, unspecified; F41.8 Other specified anxiety disorders; E03.9 Hypothyroidism, unspecified

== ENCOUNTER → 2020-09-22 | Outpatient (CLI) | payer OTHER ==
--- NOTE | 2020-09-22 16:24 | REP ---
INDICATION: ANATOMY - TWINS. Supervision of . Multiple gestation. COMPARISON: Comparison study August 06, 2020.. TECHNIQUE: Transabdominal obstetric sonography. FINDINGS: Scanning demonstrates a viable twin intrauterine gestation. Closed cervical length measured transabdominally is 4.0 cm. Fetus A is cephalic along the maternal left with heart rate 160 beats per minute. Anterior grade 1 placenta without evidence of previa. Amniotic fluid is subjectively normal. Four-chamber heart and left and right ventricular outflow tract views on fetus A are less than optimally achieved due to position. The following anatomic structures are identified in fetus A and are felt to be unremarkable: cranium, intracranial anatomy, nuchal fold face and profile nose and lips, diaphragm, left-sided stomach, abdominal wall cord insertion, right and left kidney, urinary bladder, spine, upper and lower extremities, three-vessel cord. Biometry chart fetus a: BPD 4.7 cm, 20 weeks 2 days Head circumference 16.6 cm, 19 weeks 2 days Abdominal circumference 13.6 cm, 19 weeks 0 days Femur length 3.0 cm, 19 weeks 2 days Humeral length 3.0 cm, 19 weeks 5 days HC AC ratio normal 1.22 Cephalic index normal 0.82 Estimated weight 279 g, 0 lb 9 oz, 26 percentile for 19 weeks 4 days Fetus B is breech in lie along the maternal right side. heart rate 167 beats per minute. Posterior grade 1 placenta without evidence of previa. Amniotic fluid is subjectively normal. Three-vessel umbilical cord. No anomaly is seen in fetus B. The following anatomic structures in fetus B are identified felt to be unremarkable: cranium and intracranial anatomy, face and profile nose and lips, four-chamber heart with left and right ventricular outflow tract views, diaphragm, left-sided stomach, abdominal wall cord insertion, kidneys and urinary bladder, spine, upper and lower extremities. Biometry chart fetus B: BPD 4.5 cm, 19 weeks 5 days Head circumference 16.2 cm, 19 weeks 0 days Abdominal circumference 14.3 cm, 19 weeks 4 days Femur length 3.1 cm, 19 weeks 4 days Humeral length 3.1 cm, 20 weeks 2 days HC AC ratio normal 1.13 Cephalic index normal 0.79 Estimated weight 298 g, 0 lb 10 oz, 44th percentile for 19 weeks 4 days IMPRESSION: Viable twin intrauterine gestation at 19 weeks 6 days by prior sonographic criteria. CRISTINA by today's sonography February 10, 2021. There is appropriate interval growth.. No complication identified. Four-chamber heart and left and right ventricular outflow tract views are less than optimally achieved in fetus a due to position. <Electronically signed by Kristofer Hendricks > 09/22/20 [id number]
== END ==
LOC: M WHC 13:54
PROVIDERS: ATTEND Obstetrics & Gynecology
DX: O30.042 Twin pregnancy, dichorionic/diamniotic, second trimester (principal); Z3A.19 19 weeks gestation of pregnancy

== ENCOUNTER → 2020-10-11 | Outpatient (CLI) | payer OTHER ==
--- NOTE | 2020-10-11 17:39 | REP ---
INDICATION: F/U ANATOMY AND GROWTH. COMPARISON: 09/22/2020. TECHNIQUE: Real-time sonographic evaluation of the gravid uterus performed. FINDINGS: There is a living intrauterine twin gestation, diamniotic dichorionic. Estimated gestational age is21 weeks 6 days, EDC 02/15/2021. Today's measurements indicate appropriate concordant growth. Closed cervical length is measured at 3.6 cm. Fetus a: Presentation: Cephalic, on the left. Placenta anterior, grade 1, without evidence of placenta previa. heart rate is recorded at 161 beats per minute. Amniotic fluid is subjectively normal. Biometry chart: BPD: 54 mm, 22 weeks 3 days, 67th percentile. HC: 199 mm, 22 weeks 0 days, 56th percentile AC: 183 mm, 23 weeks 1 days, 78th percentile Femur length: 37 mm, 21 weeks 4 days, 43rd percentile HC to AC ratio: 1.08, normal range 1.05-1.24. Estimated weight: 503g, percentile. anatomy: Cranium: Grossly normal Lateral Ventricles/Choroid Plexus: Grossly normal Posterior Fossa/Cerebellum: Grossly normal Nose/lips/profile: Previously seen. Four chamber heart: Grossly normal Right ventricular outflow tract: Grossly normal Left ventricular outflow tract: Grossly normal Left-sided stomach: Grossly normal Kidneys: Grossly normal Bladder: Grossly normal Cord Insertion: Grossly normal 3 vessel cord: Grossly normal Spine: Grossly normal Fetus b: Presentation: Breech, on the right. Placenta posterior, grade 1, without evidence of placenta previa. heart rate is recorded at beats per minute. Amniotic fluid is subjectively normal. Biometry chart: BPD: 52 mm, 21 weeks days, 48th percentile. HC: 196 mm, 21 weeks 6 days, 49th percentile AC: 174 mm, 22 weeks 3 days, 61st percentile Femur length: 37 mm, 21 weeks 5 days, 45th percentile HC to AC ratio: 1.13, normal range 1.05-1.24. Estimated weight: 469g, 52nd percentile. anatomy: Cranium: Grossly normal Lateral Ventricles/Choroid Plexus: Grossly normal Posterior Fossa/Cerebellum: Grossly normal Nose/lips/profile: Previously documented. Four chamber heart: Previously documented. Right ventricular outflow tract: Previously documented. Left ventricular outflow tract: Previously documented. Left-sided stomach: Grossly normal Kidneys: Grossly normal Bladder: Grossly normal Cord Insertion: Grossly normal 3 vessel cord: Grossly normal Spine: Grossly normal IMPRESSION: Viable intrauterine twin gestation as above. <Electronically signed by Jacky Frazier > 10/11/20 [id number]
== END ==
LOC: M WHC 13:24
PROVIDERS: ATTEND Advanced Practice Midwife
DX: O30.042 Twin pregnancy, dichorionic/diamniotic, second trimester (principal); Z3A.21 21 weeks gestation of pregnancy

== ENCOUNTER → 2020-10-22 | Outpatient (CLI) | payer OTHER | LOC: M WHC 13:59 | PROVIDERS: ATTEND Obstetrics & Gynecology | DX: O30.042 Twin pregnancy, dichorionic/diamniotic, second trimester (principal); Z3A.00 Weeks of gestation of pregnancy not specified; Z53.9 Procedure and treatment not carried out, unspecified reason ==

== ENCOUNTER → 2020-11-15 | Outpatient (CLI) | payer OTHER ==
--- NOTE | 2020-11-15 19:50 | REP ---
INDICATION: TWINS/F/U ANATOMY. Growth study. COMPARISON: Comparison study October 11, 2020.. TECHNIQUE: Transabdominal obstetric sonography. FINDINGS: Scanning through the gravid uterus demonstrates a viable twin dichorionic diamniotic gestation. Closed cervical length is 3.4 cm measured transabdominally. Fetus a is cephalic along the maternal left with heart rate 161 beats per minute. Anterior grade 1 placenta without evidence of previa. Amniotic fluid is subjectively normal. Maximum vertical pocket 8.5 cm. Fetus B is breech along the maternal right. heart rate 149 beats per minute. Posterior grade 1 placenta without evidence of previa. Amniotic fluid subjectively normal. Maximum vertical pocket 6.4 cm. Three-vessel cord for both pregnancies. Biometry chart fetus a: BPD 7.0 cm, 28 weeks 0 days Head circumference 24.9 cm, 27 weeks 0 days Abdominal circumference 23.3 cm, 27 weeks 5 days Femur length 4.8 cm, 25 weeks 6 days Humeral length 4.7 cm, 27 weeks 5 days HC AC ratio normal 1.09 Cephalic index normal 0.79 Estimated weight 1017 g, 2 lb 3 oz, 45th percentile for 26 weeks 6 days Umbilical arterial Doppler flow ratio normal 2.46 Biometry chart fetus B: BPD 6.8 cm, 27 weeks 2 days Head circumference 24.7 cm, 26 weeks 6 days Abdominal circumference 23.9 cm, 28 weeks 1 day Femur length 4.9 cm, 26 weeks 4 days Humeral length 4.6 cm, 27 weeks 2 days HC AC ratio normal 1.03 Cephalic index normal 0.77 Estimated weight 1076 g, 2 lb 5 oz, 62nd percentile for 26 weeks 6 days At SD ratio in the umbilical cord artery Doppler is normal 3.20 IMPRESSION: Viable twin intrauterine gestation at 27 weeks 4 days by comparison prior sonography CRISTINA February 10, 2021. Appropriate interval growth. <Electronically signed by Kristofer Hendricks > 11/15/201946
== END ==
LOC: M WHC 13:17
PROVIDERS: ATTEND Obstetrics & Gynecology
DX: O30.042 Twin pregnancy, dichorionic/diamniotic, second trimester (principal); Z3A.27 27 weeks gestation of pregnancy

== ENCOUNTER → 2020-11-18 | Outpatient (REF) | payer OTHER | LOC: M PLALAB 16:54 | PROVIDERS: ATTEND Obstetrics & Gynecology | DX: Z36.89 Encounter for other specified antenatal screening (principal); Z3A.27 27 weeks gestation of pregnancy ==

== ENCOUNTER → 2020-11-30 | Outpatient (REF) | payer OTHER ==
[2020-11-30 15:26] LABS: HEMATOCRIT 32.5 % (36.0-47.0); HEMOGLOBIN 10.4 g/dl (12.0-15.5); MEAN CORPUSCULAR HEMOGLOBIN 29.3 pg (27.0-33.0); MEAN CORPUSCULAR VOLUME 91.5 fl (80.0-96.0); PLATELET COUNT, AUTOMATED 236 10^3/uL (150-450); RED BLOOD COUNT 3.55 10^6/uL (4.00-5.40)
[2020-11-30 16:01] LABS: FREE T4 0.78 NG/DL (0.76-1.46); THYROID STIMULATING HORMONE 1.57 uIU/ML (0.358-3.740)
== END ==
LOC: M PLALAB 12:20
PROVIDERS: ATTEND Obstetrics & Gynecology
DX: Z3A.27 27 weeks gestation of pregnancy (principal); E03.9 Hypothyroidism, unspecified

== ENCOUNTER → 2020-12-02 | Outpatient (REF) | payer OTHER ==
[2020-12-02 12:54] LABS: BASO # 0.1 10^3/uL (0.0-0.2); BASO % 0.7 % (0.0-1.0); EOS # 0.1 10^3/uL (0.0-0.5); EOS % 1.5 % (0.0-3.0); HEMATOCRIT 33.8 % (36.0-47.0); HEMOGLOBIN 10.7 g/dl (12.0-15.5); LYMPH # 1.9 10^3/uL (1.5-5.0); LYMPH % 21.8 % (24.0-44.0); MEAN CORPUSCULAR HEMOGLOBIN 28.9 pg (27.0-33.0); MEAN CORPUSCULAR HGB CONC 31.7 g/dl (32.0-36.5); MEAN CORPUSCULAR VOLUME 91.4 fl (80.0-96.0); MONO # 0.9 10^3/uL (0.0-0.8); MONO % 11.1 % (2.0-8.0); NEUTROPHILS # 5.5 10^3/uL (1.5-8.5); NEUTROPHILS % 64.2 % (36.0-66.0); PLATELET COUNT, AUTOMATED 263 10^3/uL (150-450); WHITE BLOOD COUNT 8.5 10^3/uL (4.0-10.0)
[2020-12-02 16:32] LABS: ALBUMIN 2.8 GM/DL (3.2-5.2); ALT/SGPT 17 U/L (12-78); BILIRUBIN,TOTAL 0.7 MG/DL (0.2-1.0); BLOOD UREA NITROGEN 9 MG/DL (7-18); CALCIUM LEVEL 8.6 MG/DL (8.5-10.1); CARBON DIOXIDE LEVEL 23 MEQ/L (21-32); CHLORIDE LEVEL 107 MEQ/L (98-107); CREATININE FOR GFR 0.38 MG/DL (0.55-1.30); FREE T4 0.76 NG/DL (0.76-1.46); GLOMERULAR FILTRATION RATE > 60.0 (>60); GLUCOSE, FASTING 65 MG/DL (70-100); POTASSIUM SERUM 4.2 MEQ/L (3.5-5.1); SODIUM LEVEL 138 MEQ/L (136-145); TOTAL PROTEIN 5.9 GM/DL (6.4-8.2)
[2020-12-02 20:06] LABS: TOTAL 25(OH) VITAMIN D 41.2 NG/ML (30.0-100.0)
== END ==
LOC: M LAB REF 11:45
PROVIDERS: ATTEND Physician Assistant
DX: E55.9 Vitamin D deficiency, unspecified (principal); E03.9 Hypothyroidism, unspecified; J45.909 Unspecified asthma, uncomplicated; E78.5 Hyperlipidemia, unspecified

== ENCOUNTER → 2020-12-20 | Outpatient (CLI) | payer OTHER | LOC: M WHC 13:25 | PROVIDERS: ATTEND Obstetrics & Gynecology | DX: O30.042 Twin pregnancy, dichorionic/diamniotic, second trimester (principal) ==

== ENCOUNTER → 2020-12-20 | Outpatient (CLI) | payer OTHER | LOC: M WHC 15:27 | PROVIDERS: ATTEND Advanced Practice Midwife | DX: O30.049 Twin pregnancy, dichorionic/diamniotic, unspecified trimester (principal); Z53.9 Procedure and treatment not carried out, unspecified reason ==

== ENCOUNTER → 2020-12-28 | Outpatient (CLI) | payer OTHER | LOC: M WHC 11:48 | PROVIDERS: ATTEND Advanced Practice Midwife | DX: O30.049 Twin pregnancy, dichorionic/diamniotic, unspecified trimester (principal) ==

== ENCOUNTER → 2021-01-03 | Outpatient (CLI) | payer OTHER ==
--- NOTE | 2021-01-03 15:24 | REP ---
INDICATION: TIERRA/BPP/TWINS. COMPARISON: 12/20/2020. TECHNIQUE: Real-time sonographic evaluation of gravid uterus performed. FINDINGS: Living intrauterine diamniotic dichorionic twin gestation is present, estimated gestational age 33 weeks 6 days, EDC 02/15/2021. Fetus a: position cephalic on the left. Placenta anterior and grade 1. heart rate 150 beats per minute. The amniotic fluid within normal limits with maximum pocket of fluid measuring 5.2 cm. Biophysical profile score 8/8. SD ratio umbilical artery 3.10, normal 1.74-3.69. RI 0.68, normal 0.47-0.73. Fetus B: position transverse on maternal right side. Placenta posterior and grade 1. heart rate 143 beats per minute. Amniotic fluid within normal limits, maximum pocket of fluid 5.7 cm. Biophysical profile score 8/8. SD ratio 2.79, normal 1.74-3.69. RI 0.64, normal 0.47-0.73. Cervix is closed and measures 3.0 cm in length. IMPRESSION: Viable twin gestation as discussed above. <Electronically signed by Jacky Frazier > 01/03/21 1520
== END ==
LOC: M WHC 12:50
PROVIDERS: ATTEND Advanced Practice Midwife
DX: O30.049 Twin pregnancy, dichorionic/diamniotic, unspecified trimester (principal)

== ENCOUNTER → 2021-01-07 | Outpatient (REF) | payer OTHER | LOC: M SFHCWAGY 12:54 | PROVIDERS: ATTEND Advanced Practice Midwife | DX: O30.049 Twin pregnancy, dichorionic/diamniotic, unspecified trimester (principal) ==

== ENCOUNTER → 2021-01-10 | Outpatient (CLI) | payer OTHER ==
--- NOTE | 2021-01-10 14:02 | REP ---
INDICATION: TWIN GESTATION,BPP,TIERRA COMPARISON: 01/03/2021 TECHNIQUE: Transabdominal obstetrical ultrasound with color Doppler evaluation. FINDINGS: Examination demonstrates dichorionic diamniotic twin live intrauterine . Gestational age by known CRISTINA is 34 weeks 6 days with estimated date of delivery 02/15/2021. TWIN A: Cephalic presentation towards right side of the uterus. heart rate equals 139 beats per minute. Placenta noted anterior and grade 1. Amniotic fluid volume deepest pocket: 4.5 cm Biophysical profile score: 8/8 Umbilical artery SD ratio: 2.30 (1.69-3.60) TWIN B: Transverse towards right side of the uterus. heart rate equals 152 beats per minute. Placenta noted posterior and grade 2. Amniotic fluid volume deepest pocket: 6.0 cm Biophysical profile score: 8/8 Umbilical artery SD ratio: 2.43 (1.69-3.60) IMPRESSION: Twin gestation demonstrating appropriate amniotic fluid volume and biophysical profile scores. <Electronically signed by Man Montgomery > 01/10/21 1593
== END ==
LOC: M WHC 12:48
PROVIDERS: ATTEND Advanced Practice Midwife
DX: Z36.89 Encounter for other specified antenatal screening (principal); O30.049 Twin pregnancy, dichorionic/diamniotic, unspecified trimester; Z3A.34 34 weeks gestation of pregnancy

== ENCOUNTER → 2021-01-19 | Outpatient (CLI) | payer OTHER ==
[~2021-01-19] MED LIST changes: +FOLI800C PO; +IRON240T PO; +PRENTAB9 PO; +PROAAER10 INH; +[UNRECOGNIZED DRUG - CODE] PO
--- NOTE | 2021-01-19 14:25 | REP ---
INDICATION: TWIN GESTATION,GROWTH,TIERRA,BPP COMPARISON: 01/10/2021 TECHNIQUE: Transabdominal obstetrical ultrasound with color Doppler evaluation. FINDINGS: Examination demonstrates dichorionic diamniotic twin live intrauterine . Selected gestational age: 36 weeks 1 day with estimated date of delivery 02/15/2021. TWIN A: Cephalic presentation towards left side of the uterus. heart rate equals 146 beats per minute. Placenta noted anterior and grade 1. Amniotic fluid volume deepest pocket: 5.7 cm Estimated weight by biometric measurements 2672 g 32nd percentile. Biophysical profile score: 8/8 Umbilical artery SD ratio: 1.91 (1.63-3.50) TWIN B: Transverse presentation with head to right side towards right side of the uterus. heart rate equals 160 beats per minute. Placenta noted posteriorly and grade 2. Amniotic fluid volume deepest pocket: 7.4 cm Estimated weight by biometric measurements 2651 g 30th percentile Biophysical profile score: 8/8 Umbilical artery SD ratio: 2.68 (1.63-3.50) IMPRESSION: Twin gestation demonstrating appropriate concordant interval growth. Normal biophysical profile scores noted. <Electronically signed by Man Montgomery > 01/19/21 [id number]
== END ==
LOC: M WHC 12:09
PROVIDERS: ATTEND Advanced Practice Midwife
DX: O30.049 Twin pregnancy, dichorionic/diamniotic, unspecified trimester (principal)

== ENCOUNTER → 2021-01-24 | Outpatient (CLI) | payer OTHER ==
--- NOTE | 2021-01-24 22:16 | REP ---
INDICATION: TWIN GESTATION,BPP,TIERRA COMPARISON: 01/19/2021 TECHNIQUE: Transabdominal obstetrical ultrasound with color Doppler evaluation. FINDINGS: Examination demonstrates live intrauterine twin . Selected gestational age: 36 weeks 6 days with estimated date of delivery 02/15/2021. Cervix measures 3.5 cm in length and appears closed. TWIN A: Cephalic presentation towards inferior side of the uterus. heart rate equals 149 beats per minute. Placenta noted anterior and grade 2. Amniotic fluid volume deepest pocket: 6.5 cm Biophysical profile score: 8/8 Umbilical artery SD ratio: 1.78, 1.69 (1.60-3.44) TWIN B: Breech presentation towards superior side of the uterus. heart rate equals 134 beats per minute. Placenta noted posterior and grade 2. Amniotic fluid volume deepest pocket: 7.1 cm Biophysical profile score: 8/8 Umbilical artery SD ratio: 3.41, 2.79 (1.60-3.44) IMPRESSION: Twin gestation demonstrating normal biophysical profile scores and amniotic fluid volume. <Electronically signed by Man Montgomery > 01/24/21 3220
== END ==
LOC: M WHC 13:30
PROVIDERS: ATTEND Advanced Practice Midwife
DX: O30.049 Twin pregnancy, dichorionic/diamniotic, unspecified trimester (principal)

== ENCOUNTER → 2021-01-27 | Outpatient (CLI) | payer OTHER | LOC: M LABSMTC 09:50 | PROVIDERS: ATTEND Anesthesiology | DX: Z01.818 Encounter for other preprocedural examination (principal); Z11.52 Encounter for screening for COVID-19 ==

== ENCOUNTER 2021-01-31 12:48 | Inpatient (IN) | payer OTHER ==
[~2021-01-31] VITALS: Ht 162.6 cm; Wt 89.6 kg
[2021-01-31 13:08] VITALS: BP 104/59
[2021-01-31 14:58] VITALS: BP 118/66
[2021-01-31 16:45] VITALS: BP 133/77
[2021-01-31] MEDS ORDERED: LACTATED RINGER'S 1000 ML IV STA ×2 (17:09→21:12)
[2021-01-31] MEDS ORDERED: OXYTOCIN DRIP 30 UNITS in IV 1 EA IV PRN ×2 (17:10→21:15)
[2021-01-31] MEDS ORDERED: LR 1,000 ML IV SCH ×2 (17:10→21:15)
[2021-01-31] MEDS ORDERED: TRANEXAMIC ACID INJection 1,000 MG in NS 100 ML IV PRN (17:10)
[2021-01-31] MEDS ORDERED: CARBOPROST TROMETHAMINE 250 MCG/ML AMP IM PRN (17:10)
[2021-01-31] MEDS ORDERED: METHYLERGONOVINE MALEATE 0.2 MG/ML VIAL (J2210) IM PRN (17:10)
[2021-01-31] MEDS ORDERED: LIDOCAINE 1% MDV 20ML VIAL INFIL PRN (17:10)
--- NOTE | 2021-01-31 17:37 | HPEPDOC ---
Obstetrical History & Physical General Date of Admission 01/31/21 Primary Care Physician: SUE MIMS CNM History of Present Illness Farzaneh is a 35-year-old female who is a at 37.6 weeks gestation with an CRISTINA of 02/15/21 based off of her LMP and consistent with her first trimester ultrasound. She initiated care in her first trimester of . Her has been complicated by a history of gastric bypass, di/di twin gestation, hypothyroidism, asthma and being overweight. She presents to L&D with complaints or contractions. She reports active movement. She denies vaginal bleeding or leaking of fluid but does report increased mucous discharge. Chief Complaint: Active Labor Information Provided By: Patient Age: 35 : 12 Term: 2 Pre-term: 0 Abortions: 9 Livin Care Care: Good Care Dating Final EDC: Feb 15, 2021 Final EDC by: LMP EGA at Admission: 37.6 Antepartum Course Diagnos(e)s diamniotic dichorionic twin gestation Height (inches): 64 Past Medical History Past Obstetrical History #1: Date of Delivery: Sep 23, 2008 Gestation: 40 Type of Delivery: Spontaneous Vaginal Del. (weight 7 lbs 10 oz) Sex of Infant: Male Complications: Yes (forcep and vacuum used) Past Obstetrical History #2: Past Obstetrical History: Multigravida Date of Delivery: Mar 25, 2016 Gestation: 40 Type of Delivery: Spontaneous Vaginal Del. (weight 7 lbs 11 oz) Sex of : Male Complications: No JIG INSPECTOR History: Spontaneous (x9) Past Medical History Medical History hypothyroidism Asthma overweight with BMI at first visit at 30 Surgical History: Appendectomy, [place] teeth, Other (gastric bypass) Family History Significant Family History: Diabetes, Heart disease, Other (stroke) Social History Marital Status: Family situation: Spouse/partner home Psychosocial History: No pertinent psych hx * Smoker: non-smoker Alcohol: Denies Drugs: denies Allergies Coded Allergies: Penicillins (Verified Allergy, Intermediate, HIVES, 01/31/21) codeine (Verified Allergy, Intermediate, HIVES, 01/18/21) Dust (Verified Allergy, Unknown, MOLD, 01/18/21) Medications Scheduled Ferrous Gluconate (Iron) 240 Mg Tablet, 240 MG PO DAILY Folic Acid (Folic Acid) 0.8 Mg Capsule, 800 MCG PO DAILY Loratadine (Claritin) 10 Mg Capsule, 10 MG PO DAILYPRN No.137/Iron/Folic Acd ( Vitamin Tablet) 1 Each Tablet, 1 TAB PO DAILY Thyroid,Pork (Die Forger Thyroid) 120 Mg Tablet, 120 MG PO DAILY Scheduled PRN Albuterol Sulfate (Proair Hfa) 8.5 Gm Hfa.aer.ad, 2 PUFF INH PRN PRN for SHORTNESS OF BREATH Physical Examination Physical Examination GENERAL: Alert and oriented times three. ABDOMEN: Gravid and non-tender to touch. FETUS: Is vertex (VTX) by sterile vaginal examination (SVE), fetus is vertex (VTX) by Drake. Bedside ultrasound sound done twice and both fetus cephalic presentation. LUNGS: Clear to auscultation (CTA). EXTREMITIES: Generalized edema. No clonus. Deep tendon reflexes (DTRs) + 2. Vital Signs/I&O Vital Signs Date Time Temp Pulse Resp B/P (MAP) Pulse Ox O2 Delivery O2 Flow Rate FiO2 01/31/21 13:08 98.6 81 18 104/59 (74) 99 Room Air Laboratory Data CBC/BMP Item Value Date Time White Blood Count 7.7 10^3/uL 01/31/21 1750 Red Blood Count 3.98 10^6/uL L 01/31/21 1750 Hemoglobin 11.1 g/dl L 01/31/21 1750 Hematocrit 34.4 % L 01/31/21 1750 Mean Corpuscular Volume 86.4 fl 01/31/21 175 Mean Corpuscular Hemoglobin 27.9 pg 01/31/21 175 Mean Corpuscular Hemoglobin Concent 32.3 g/dl 01/31/21 1750 Red Cell Distribution Width 15.7 % H 01/31/21 1750 Platelet Count 222 10^3/uL 01/31/21 1750 Pertinent Laboratoy Data Blood Type: A+ RBC Antibody Screen: Negative HIV: Negative Hepatitis B: Negative Hepatitis C: Negative Rapid Plasma Reagin: Nonreactive Rubella: Immune Chlamydia/Gonorrhea: Negative Group B Streptococcus: Negative Glucose Tolerance Test: 72 Vaginal Examination Dilation: 5 cm (5-6 cm) Effacement: 90% Station: -2 Cervical Consistency: Soft Cervical Position: Anterior Presentation: Cephalic presentation Position: Vertex (occiput) Assessment Heart Rate (FHR): 140 Variability: Moderate (both twins baseline are 140's) Accelerations: Positive Decelerations: None Tocometer Contractions: Yes Frequency: regular Multi-drug resistant Organism: No history of MDRO Assessment/Plan Assessment di/di twin gestation at 37.6 weeks gestation active labor cephalic presentation GBS negative Category I FHR tracing. Plan Admit to L&D. Dr. Loza consulted on patient and plan of care. OOB ad yared. Diet: clears. Patient reports she desires vaginal delivery if both are cephalic presentation Group B Streptococcus (GBS) negative. Labs and intravenous (IV) per unit protocol. Anesthesia consult per patient's request. Counseled on risks/benefits and alternatives of mode of delivery. Lactated Ringers (LR): Bolus 800 mL prior to epidural, then at 125 mL/hr. IV Pitocin to be started per Dr. Loza. Anticipate normal spontaneous delivery (). C-S as appropriate. SUE MIMS CNM Jan 31, 2021 17:37
[2021-01-31 18:10] VITALS: BP 123/69
[2021-01-31 18:10] LABS: HEMATOCRIT 34.4 % (36.0-47.0); HEMOGLOBIN 11.1 g/dl (12.0-15.5); MEAN CORPUSCULAR HEMOGLOBIN 27.9 pg (27.0-33.0); MEAN CORPUSCULAR HGB CONC 32.3 g/dl (32.0-36.5); MEAN CORPUSCULAR VOLUME 86.4 fl (80.0-96.0); PLATELET COUNT, AUTOMATED 222 10^3/uL (150-450); RED BLOOD COUNT 3.98 10^6/uL (4.00-5.40); WHITE BLOOD COUNT 7.7 10^3/uL (4.0-10.0)
[2021-01-31] MEDS ORDERED: OXYTOCIN DRIP 30 UNITS in IV 1 EA IV SCH ×2 (18:25→23:05)
[2021-01-31 19:02] VITALS: BP 119/76
[2021-01-31 19:32] VITALS: BP 111/73
[2021-01-31] MEDS ORDERED: BICITRA 30ML SOLN UDC PO ONE (21:15)
[2021-01-31] MEDS ORDERED: ceFAZolin SOD 2 GM in IV 1 EA IV ONE (21:15)
[2021-01-31] MEDS ORDERED: MORPHINE PRES-FREE INJ 10 MG/10 ML VIAL (J2274) As Ordered ONE (21:31)
[2021-01-31] MEDS ORDERED: KETOROLAC 60MG 2ML VIAL As Ordered ONE (21:31)
[2021-01-31] MEDS ORDERED: dexameTHASONE 4 MG/ML 1ML VIAL (J1100 PER 1MG) As Ordered ONE (21:31)
[2021-01-31] MEDS ORDERED: fentaNYL 100 MCG/2 ML INJECTION (J3010) As Ordered ONE (21:31)
[2021-01-31] MEDS ORDERED: OXYTOCIN INJ 10 UNITS/ML VIAL (J2590) As Ordered ONE (21:31)
[2021-01-31] MEDS ORDERED: ONDANSETRON 4MG/2ML VIAL As Ordered ONE (21:31)
--- NOTE | 2021-01-31 22:02 | IPNPDOC ---
Obstetrical Progress Note Date of Service Jan 31, 2021 Subjective Patient feeling contractions and considering an epidural. Objective Vital Signs Date Time Temp Pulse Resp B/P (MAP) Pulse Ox O2 Delivery O2 Flow Rate FiO2 01/31/21 19:32 80 18 111/73 (86) 01/31/21 19:02 98.4 01/31/21 13:08 99 Room Air Assessment Variability: Moderate Accelerations: Positive Decelerations: None Heart Rate Tracing: Category I (Twin A FHR baseline 145 and Twin B baseling 140) Tocometer Contractions: Yes Frequency: regular Assessment and Plan Age: 35 : 12 Term: 2 Pre-term: 0 Abortions: 9 Livin EGA at Admission: 37.6 Status: Reassuring Group B Streptococcus: Negative Anticipate: Section Additional Comments Patient off monitors for a short time to use the restroom. Sono done due to difficulty finding Twin B on monitor and Twin B is transverse now with head to maternal left. IV Pitocin turned off. Dr. Loza present with ultrasound and all options were reviewed with her including risks and benefits of each option including ECV or breech delivery for second baby. Patient desires section. Anesthesia notified. Neonatology notified. Will proceed to section. SUE MIMS CNM Jan 31, 2021 22:02
[2021-01-31] MEDS ORDERED: NALBUPHINE HCL 10 MG/ML AMP (J2300) IV PRN (22:12)
[2021-01-31] MEDS ORDERED: NALOXONE INJ 0.4MG/1ML VIAL (J2310 PER 1MG) IV PRN ×2 (22:12)
[2021-01-31] MEDS ORDERED: METOCLOPRAMIDE INJ 10MG/2ML VIAL (J2765 PER 1) IV PRN (22:12)
[2021-01-31] MEDS ORDERED: ONDANSETRON 4MG/2ML VIAL IV PRN ×2 (22:12→23:40)
[2021-01-31] MEDS ORDERED: diphenhydrAMINE 50MG/ML VIAL (J1200) IV PRN (22:12)
[2021-01-31] MEDS ORDERED: PHENYLephrine 500MCG 5ML (100MCG/ML) SYRINGE As Ordered ONE (22:19)
[2021-01-31] MEDS ORDERED: ePHEDrine SULFATE 25 MG/5 ML(5MG/ML) SYRINGE As Ordered ONE (22:19)
[2021-01-31 23:02] LABS: CORD GAS ABE V -1.2; CORD GAS HCO3 V 23.3 MEQ/L; CORD GAS O2 SAT V 40.5 %; CORD GAS PCO2 V 38.5 mmHg; CORD GAS PH V 7.399 UNITS; CORD GAS PO2 V 16.6 mmHg; CORD GAS SBC V 21.9 MEQ/L; CORD GAS TCO2 V 24.4 MEQ/L
[2021-01-31] MEDS ORDERED: ULTRACET TAB PO PRN (23:05)
[2021-01-31] MEDS ORDERED: MEASLES,MUMPS,RUBELLA VACCINE INJ (MMR-II) (90707) SC SCH (23:05)
[2021-01-31] MEDS ORDERED: METHYLERGONOVINE MALEATE 0.2 MG TAB PO PRN (23:05)
[2021-01-31] MEDS ORDERED: RHOGAM 300 MCG (1500 IU) INJ (J2790) IM SCH (23:05)
[2021-01-31] MEDS ORDERED: ANUSOL HC CREAM 30GM TOP PRN (23:05)
[2021-01-31 23:06] LABS: CORD GAS HCO3 A 23.9 MEQ/L; CORD GAS O2 SAT A 16.2 %; CORD GAS PH A 7.343 UNITS; CORD GAS PO2 A 10.9 mmHg; CORD GAS SBC A 20.7 MEQ/L; CORD GAS TCO2 A 25.3 MEQ/L
[2021-01-31 23:09] LABS: CORD GAS ABE V -3.1; CORD GAS O2 SAT V 81.3 %; CORD GAS PH V 7.397 UNITS; CORD GAS PO2 V 34.6 mmHg; CORD GAS SBC V 21.6 MEQ/L; CORD GAS TCO2 V 22.1 MEQ/L
[2021-01-31 23:11] LABS: CORD GAS ABE A -3.3; CORD GAS HCO3 A 21.2 MEQ/L; CORD GAS O2 SAT A 62.6 %; CORD GAS PCO2 A 36.7 mmHg; CORD GAS PH A 7.38 UNITS; CORD GAS PO2 A 24.1 mmHg; CORD GAS SBC A 20.9 MEQ/L; CORD GAS TCO2 A 22.3 MEQ/L
[2021-01-31] MEDS ORDERED: OXYTOCIN 30 UNITS IN 0.9% NaCl 500ML IV BAG (J2590) As Ordered ONE (23:19)
[2021-01-31] MEDS: LR 1,000 ML IV SCH (23:34)
[2021-01-31] MEDS ORDERED: fentaNYL 100 MCG/2 ML INJECTION (J3010) IV PRN (23:40)
[2021-02-01] VITALS (11 sets, daily range): BP systolic 109–186; BP diastolic 67–102
[2021-02-01] MEDS: KETOROLAC 30 MG/ML 1ML VIAL IV SCH ×3 (04:06→16:18)
[2021-02-01] MEDS: THYROID 30 MG TAB PO SCH (06:44)
[2021-02-01] MEDS: LR 1,000 ML IV SCH (07:05)
[2021-02-01 07:42] LABS: HEMATOCRIT 36.3 % (36.0-47.0); HEMOGLOBIN 11.4 g/dl (12.0-15.5); MEAN CORPUSCULAR HEMOGLOBIN 27.2 pg (27.0-33.0); MEAN CORPUSCULAR HGB CONC 31.4 g/dl (32.0-36.5); MEAN CORPUSCULAR VOLUME 86.6 fl (80.0-96.0); PLATELET COUNT, AUTOMATED 218 10^3/uL (150-450); RED BLOOD COUNT 4.19 10^6/uL (4.00-5.40); WHITE BLOOD COUNT 13.3 10^3/uL (4.0-10.0)
[2021-02-01] MEDS: DOCUSATE SODIUM 100MG CAPSULE PO SCH ×2 (08:43→22:16)
[2021-02-01] MEDS: PRENATAL VITAMINS CHEWABLE TABLET PO SCH (08:43)
[2021-02-01] MEDS: ONDANSETRON 4MG/2ML VIAL IV PRN ×2 (08:44→18:35)
--- NOTE | 2021-02-01 09:52 | RO ---
OPERATIVE NOTE DATE OF OPERATION: 01/31/2021 Farzaneh is a 35-year-old female, twin gestation, di/di, was admitted in labor. However, she was found to have twin A in a vertex position and twin B in the breech position. The patient refused to proceed with vaginal delivery as she does not want any version done after delivery. She is requesting a delivery via primary section. PREOPERATIVE DIAGNOSIS: Twin gestation, vertex breech, desires primary section. POSTOPERATIVE DIAGNOSIS: 1. Twin gestation, vertex breech, desires primary section. 2. Nuchal cord x1 in twin B. PROCEDURE: 1. Primary low transverse section. 2. Internal version of twin B. SURGEON: Marcos Loza DO PORTRAIT CONSULTANT: Nila Crockett CNM ANESTHESIA: Spinal. COMPLICATIONS: None. ESTIMATED BLOOD LOSS: 600 mL FINDINGS: Twin A in vertex position with an of 8-9, weight 6 lb, 11 oz. Twin B was found to be footling breech and internal cephalic version was done. Then twin B was delivered in a vertex fashion, 8-9, weight 6 lb, 5 oz. Normal appearing tubes and ovaries. PROCEDURE: After obtaining informed consent, the patient was taken to the operating room where spinal anesthetic was found to be adequate. She was then draped and prepped in the usual sterile fashion in the supine position. At this point, a Pfannenstiel incision was made. This was carried down to the fascia. The fascia was incised in a midline fashion and carried through laterally. The superior aspect of the fascia was then grasped with a Julian clamp, tented up and dissected off the rectus muscles sharply. The inferior aspect was dissected off in a similar fashion. The rectus muscles were in midline fashion. The peritoneum was identified. The peritoneal cavity was entered bluntly. Superior and inferior dissection of the peritoneum was then done with good visualization of the bladder. At this point, a Mobius skin retractor was placed. A low transverse uterine incision was made. Twin A was delivered in atraumatic fashion with clear amniotic fluid noted. At this point after delivering twin A, twin B was found to be in footling breech. An internal cephalic version was then performed. The amniotic sac was ruptured, clear fluid noted and B was delivered in a vertex fashion without any difficulties. The cord was doubly clamped and cut. Cord blood gas sent. The placenta was removed manually intact, 3-vessel cord. The uterus was then cleared of all clot and debris and the uterine incision was repaired in two separate layers of 0 Vicryl sutures. At this point, the pelvis was copiously irrigated with normal saline. Attention was turned to the peritoneum which was closed in a running fashion using 2-0 Vicryl. The fascia was closed in two separate segments of 0 Vicryl sutures and skin was reapproximated in subcuticular fashion using 3-0 Vicryl on a Kerwin. Steri-Strips were placed. The patient tolerated the procedure well. She was then transferred to recovery room in stable condition. [facility]
[2021-02-01] MEDS: ACETAMINOPHEN TAB 650MG DOSE (2X325MG) PO PRN (18:44)
[2021-02-02] MEDS ORDERED: IBUPROFEN 800 MG TAB PO PRN
[2021-02-02] MEDS ORDERED: IBUPROFEN 600MG TAB PO PRN
[2021-02-02] MEDS: traMADol 50 MG TAB PO PRN ×4 (01:07→20:13)
[2021-02-02 02:00] VITALS: BP 138/74
[2021-02-02 06:00] VITALS: BP 122/69
[2021-02-02] MEDS: THYROID 30 MG TAB PO SCH (06:39)
[2021-02-02] MEDS: SIMETHICONE 80MG CHEW TAB PO PRN ×2 (07:25→20:17)
[2021-02-02] MEDS: PRENATAL VITAMINS CHEWABLE TABLET PO SCH (08:24)
[2021-02-02] MEDS: ACETAMINOPHEN TAB 650MG DOSE (2X325MG) PO PRN ×2 (08:25→23:12)
[2021-02-02] MEDS: DOCUSATE SODIUM 100MG CAPSULE PO SCH ×2 (08:25→20:13)
[2021-02-02 09:57] VITALS: BP 14/64
[2021-02-02 13:58] VITALS: BP 126/63
[2021-02-02 17:47] VITALS: BP 119/72
--- NOTE | 2021-02-02 21:36 | IPNPDOC ---
Progress Note Date of Service: Feb 01, 2021 Day#: 1 Progress Note SUBJECT: Farzaneh is a 35-year-old female who requested a primary sec tion last night for twin gestation due to Twin B moving from cephalic presentation to breech presentation. She reports slight nausea but has been tolerating PO fluids. Also complaining of slight dizziness. Catheter is still present. She is both twins. OBJECTIVE: VITAL SIGNS: Within normal limits, afebrile. Alert and oriented times three. Breath sounds clear to auscultation. Abdomen: Fundus firm at U. Bandage is clear and intact without any fluid leaking through. Minimal lochia. ASSESSMENT: Day 1 postoperative from primary section of twin gestation PLAN: 1. Continue supportive nursing care. 2. IF patient continues nausea and unable to tolerate PO fluids LR to be restarted. 3. Catheter to be removed as soon as nausea improves. 4. Bandage to be removed tonight and patient may shower. VS, I&O, 24H, Fishbone Vital Signs/I&O Vital Signs Label Value Date Time Patient Temperature 98.1 degrees F 02/01/21 0938 Temperature Source Temporal 02/01/21 0938 Pulse 58 02/01/21 0938 Respiratory Rate 19 bpm 02/01/21 0938 Blood Pressure Assessment 130/78 (95) 02/01/21 0938 Source Automatic Cuff (NIBP) Bedside Pulse Oximetry 96 % 02/01/21 0938 Item Value Date Time Oxygen Delivery Method Room Air 02/01/21 0938 Laboratory Data CBC/BMP Item Value Date Time White Blood Count 13.3 10^3/uL H 02/01/21 0709 Red Blood Count 4.19 10^6/uL 02/01/21 0709 Hemoglobin 11.4 g/dl L 02/01/21 0709 Hematocrit 36.3 % 02/01/21 0709 Mean Corpuscular Volume 86.6 fl 02/01/21 0709 Mean Corpuscular Hemoglobin 27.2 pg 02/01/21 0709 Mean Corpuscular Hemoglobin Concent 31.4 g/dl L 02/01/21 0709 Red Cell Distribution Width 15.3 % H 02/01/21 0709 Platelet Count 218 10^3/uL 02/01/21 0709 SUE MIMS CNM Feb 02, 2021 21:36
[2021-02-03] MEDS: traMADol 50 MG TAB PO PRN (03:11)
[2021-02-03 05:58] VITALS: BP 111/66
[2021-02-03] MEDS: THYROID 30 MG TAB PO SCH (06:12)
--- NOTE | 2021-02-03 06:45 | DSES ---
DISCHARGE SUMMARY DATE OF ADMISSION: 01/31/2021 DATE OF DISCHARGE: 02/03/2021 DISCHARGE DIAGNOSIS: 1. Primary section postop day #2, di/di twin delivery. SURGEON: TEO VASQUEZ DO FINANCIAL ANALYSIS MANAGER: SUE MIMS CNM HISTORY: Farzaneh was admitted for induction of labor with di/di twin gestation in cephalic presentation. During the induction, Twin B became transverse presentation, male presentation, and the patient requested a primary section for delivery and declined external cephalic version as well as breech delivery. The surgery was uncomplicated. Her estimated blood loss was 600 ml. She did deliver two live males, Twin A weighing 6 pounds, 11 ounces, Apgars 8 and 9; Twin B was delivered footling breech, 6 pounds, 5 ounces, Apgars 8 and 9. Her postoperative course has been uncomplicated. She has been out of bed for sangita-care, self-care and care. Breast-feeding has been well-established. Her pain has been well-managed with p.o. pain medication. She is tolerating p.o. fluids and a regular diet, voiding without difficulty and passing flatus. OBJECTIVE: Temperature 98.2, pulse 54, respirations 18, blood pressure is 111/66. She is alert and oriented x3. She is smiling and talkative this morning. Her breasts are soft and nontender. Nipples are intact. No crackles, no bleeding. Abdomen: Fundus is firm at one fingerbreadth below umbilicus. Her incision is well-approximated. The Steri-Strips are in place. There is no drainage. No redness. No warmth. Her perineum is intact. Lochia rubra scant. Bilateral lower extremities: +1 pitting edema. PLAN: Discharge the patient home today. She is to follow-up at [facility] for a two week incision check and an eight week visit. Prescriptions have been e-prescribed by her provider. I did review discharge instructions that include breast care, incision care, sangita-care, pelvic rest, activity and lifting restrictions, danger signs to report and access to her care provider. All of her questions have been answered and she requests discharge home.
[2021-02-03] MEDS: PRENATAL VITAMINS CHEWABLE TABLET PO SCH (08:58)
[2021-02-03] MEDS: DOCUSATE SODIUM 100MG CAPSULE PO SCH (08:58)
[2021-02-03] MEDS: ACETAMINOPHEN TAB 650MG DOSE (2X325MG) PO PRN (08:59)
== END 2021-02-03 12:00 | disposition home or self-care (01) | DRG 540 ==
LOC: M LDO 12:48 → M LDI 18:18 → M OBS 02-01 00:52
PROVIDERS: ADMIT Advanced Practice Midwife; ATTEND Obstetrics & Gynecology
PROC: 10D00Z1 Extraction of Products of Conception, Low, Open Approach (ICD-10-PCS; principal; 2021-01-31 21:12)
DX: O99.284 Endocrine, nutritional and metabolic diseases complicating childbirth (principal); O30.043 Twin pregnancy, dichorionic/diamniotic, third trimester; Z37.2 Twins, both liveborn; E03.9 Hypothyroidism, unspecified; J45.909 Unspecified asthma, uncomplicated; O32.8XX2 Maternal care for other malpresentation of fetus, fetus 2; O69.81X2 Labor and delivery complicated by cord around neck, without compression, fetus 2; Z3A.37 37 weeks gestation of pregnancy; O99.52 Diseases of the respiratory system complicating childbirth

== ENCOUNTER → 2022-05-31 | Outpatient (REF) | payer OTHER ==
[2022-05-31 14:17] LABS: BASO # 0.1 10^3/uL (0.0-0.2); EOS # 0.1 10^3/uL (0.0-0.5); EOS % 2.2 % (0.0-3.0); HEMATOCRIT 39.3 % (36.0-47.0); HEMOGLOBIN 12.3 g/dl (12.0-15.5); LYMPH # 1.8 10^3/uL (1.5-5.0); LYMPH % 31.6 % (24.0-44.0); MEAN CORPUSCULAR HEMOGLOBIN 29.4 pg (27.0-33.0); MEAN CORPUSCULAR HGB CONC 31.3 g/dl (32.0-36.5); MONO # 0.7 10^3/uL (0.0-0.8); MONO % 12.1 % (2.0-8.0); NEUTROPHILS # 3.1 10^3/uL (1.5-8.5); NEUTROPHILS % 52.9 % (36.0-66.0); PLATELET COUNT, AUTOMATED 366 10^3/uL (150-450); RED BLOOD COUNT 4.18 10^6/uL (4.00-5.40); WHITE BLOOD COUNT 5.8 10^3/uL (4.0-10.0)
[2022-05-31 14:33] LABS: ALBUMIN 3.8 GM/DL (3.2-5.2); ALT/SGPT 19 U/L (12-78); BILIRUBIN,TOTAL 1.3 MG/DL (0.2-1.0); BLOOD UREA NITROGEN 17 MG/DL (7-18); CALCIUM LEVEL 9.1 MG/DL (8.5-10.1); CARBON DIOXIDE LEVEL 26 MEQ/L (21-32); CHLORIDE LEVEL 106 MEQ/L (98-107); CHOLESTEROL LEVEL 179 MG/DL (<200); CHOLESTEROL RISK RATIO 2.011 (<5); CREATININE FOR GFR 0.59 MG/DL (0.55-1.30); GLOMERULAR FILTRATION RATE > 60.0 (>60); GLUCOSE, FASTING 91 MG/DL (70-100); HDL CHOLESTEROL 89 MG/DL (>40); LDL CHOLESTEROL 82 MG/DL (<100); NON-HDL-C 90 MG/DL; POTASSIUM SERUM 4.4 MEQ/L (3.5-5.1); SODIUM LEVEL 138 MEQ/L (136-145); TOTAL PROTEIN 6.7 GM/DL (6.4-8.2); TRIGLYCERIDES LEVEL 38 MG/DL (<150)
[2022-05-31 14:42] LABS: HEMOGLOBIN A1c 5.3 %
[2022-05-31 15:11] LABS: TOTAL 25(OH) VITAMIN D 58.1 NG/ML (30.0-100.0)
== END ==
LOC: M LAB REF 12:29
PROVIDERS: ATTEND Nurse Practitioner Family
DX: E66.3 Overweight (principal); E13.9 Other specified diabetes mellitus without complications

== ENCOUNTER → 2022-06-12 | Outpatient (CLI) | payer OTHER | LOC: M RAD 15:10 | PROVIDERS: ATTEND Nurse Practitioner Family | DX: M79.645 Pain in left finger(s) (principal) ==

== ENCOUNTER → 2022-07-21 | Outpatient (REF) | payer OTHER ==
[2022-07-21 15:32] LABS: THYROID STIMULATING HORMONE 2.142 uIU/ML (0.55-4.78)
[2022-07-21 15:34] LABS: FREE T4 0.88 NG/DL (0.89-1.76)
== END ==
LOC: M LAB REF 14:23
PROVIDERS: ATTEND Nurse Practitioner Family
DX: E03.9 Hypothyroidism, unspecified (principal)

== ENCOUNTER → 2022-07-21 | Outpatient (CLI) | payer OTHER ==
[2022-07-21 13:48] LABS: HEMATOCRIT 39.7 % (36.0-47.0); HEMOGLOBIN 12.7 g/dl (12.0-15.5); MEAN CORPUSCULAR HEMOGLOBIN 30.4 pg (27.0-33.0); PLATELET COUNT, AUTOMATED 317 10^3/uL (150-450); RED BLOOD COUNT 4.18 10^6/uL (4.00-5.40); WHITE BLOOD COUNT 9.1 10^3/uL (4.0-10.0)
[2022-07-21 14:25] LABS: FREE T4 0.82 NG/DL (0.89-1.76)
[2022-07-21 14:26] LABS: THYROID STIMULATING HORMONE 2.592 uIU/ML (0.55-4.78)
[2022-07-21 14:51] LABS: HIV 1&2 SCREEN CENTAUR NEGATIVE (NEGATIVE)
[2022-07-21 14:59] LABS: HEPATITIS C VIRUS ABY INDEX 0.1 INDEX (<0.8)
[2022-07-21 17:05] LABS: GC DNA AMPLIFICATION NEGATIVE (NEGATIVE)
== END ==
LOC: M PLALAB 09:31
PROVIDERS: ATTEND Advanced Practice Midwife
DX: Z34.91 Encounter for supervision of normal pregnancy, unspecified, first trimester (principal)

== ENCOUNTER → 2022-09-11 | Outpatient (CLI) | payer OTHER | LOC: M WHC 12:59 | PROVIDERS: ATTEND Obstetrics & Gynecology | DX: Z36.3 Encounter for antenatal screening for malformations (principal); O09.522 Supervision of elderly multigravida, second trimester; Z3A.19 19 weeks gestation of pregnancy ==

== ENCOUNTER → 2022-10-25 | Outpatient (CLI) | payer OTHER | LOC: M WHC 07:03 | PROVIDERS: ATTEND Advanced Practice Midwife | DX: O99.282 Endocrine, nutritional and metabolic diseases complicating pregnancy, second trimester (principal); Z3A.25 25 weeks gestation of pregnancy ==

== ENCOUNTER → 2022-10-25 | Outpatient (CLI) | payer OTHER ==
[2022-10-25 17:44] LABS: HEMATOCRIT 37.8 % (36.0-47.0); HEMOGLOBIN 12.2 g/dl (12.0-15.5); MEAN CORPUSCULAR HEMOGLOBIN 30.2 pg (27.0-33.0); MEAN CORPUSCULAR HGB CONC 32.3 g/dl (32.0-36.5); MEAN CORPUSCULAR VOLUME 93.6 fl (80.0-96.0); PLATELET COUNT, AUTOMATED 317 10^3/uL (150-450); RED BLOOD COUNT 4.04 10^6/uL (4.00-5.40)
[2022-10-25 18:10] LABS: FREE T4 0.89 NG/DL (0.89-1.76)
[2022-10-25 18:11] LABS: CALCIUM LEVEL 8.7 MG/DL (8.5-10.1); THYROID STIMULATING HORMONE 1.913 uIU/ML (0.55-4.78)
[2022-10-25 19:33] LABS: GC DNA AMPLIFICATION NEGATIVE (NEGATIVE)
== END ==
LOC: M PLALAB 15:02
PROVIDERS: ATTEND Advanced Practice Midwife
DX: O99.282 Endocrine, nutritional and metabolic diseases complicating pregnancy, second trimester (principal)

== ENCOUNTER → 2022-11-06 | Outpatient (REF) | payer OTHER | LOC: M LAB REF 12:29 | PROVIDERS: ATTEND Nurse Practitioner Family | DX: E03.9 Hypothyroidism, unspecified (principal) ==

== ENCOUNTER → 2023-01-17 | Outpatient (REF) | payer OTHER | LOC: M SFHCWAGY 17:21 | PROVIDERS: ATTEND Obstetrics & Gynecology | DX: O34.211 Maternal care for low transverse scar from previous cesarean delivery (principal) ==

== ENCOUNTER → 2023-03-07 | Outpatient (REF) | payer OTHER ==
[~2023-03-07] MED LIST changes: +COLA100C5 PO; +FLUO20CA22 PO; +NOXI1TAB PO; +OMEP10CASR PO; +PERCOCET PO
== END ==
LOC: M LAB REF 17:46
PROVIDERS: ATTEND Nurse Practitioner Family
DX: E03.9 Hypothyroidism, unspecified (principal)

== ENCOUNTER → 2023-07-24 | Outpatient (REF) | payer OTHER ==
[2023-07-24 14:31] LABS: BASO # 0.1 10^3/uL (0.0-0.2); BASO % 1.2 % (0.0-1.0); EOS # 0.3 10^3/uL (0.0-0.5); HEMATOCRIT 41.3 % (36.0-47.0); HEMOGLOBIN 13.2 g/dl (12.0-15.5); LYMPH # 1.7 10^3/uL (1.5-5.0); LYMPH % 24.8 % (24.0-44.0); MEAN CORPUSCULAR HEMOGLOBIN 29.3 pg (27.0-33.0); MEAN CORPUSCULAR VOLUME 91.6 fl (80.0-96.0); MONO # 0.8 10^3/uL (0.0-0.8); MONO % 11.1 % (2.0-8.0); NEUTROPHILS # 3.9 10^3/uL (1.5-8.5); NEUTROPHILS % 57.5 % (36.0-66.0); PLATELET COUNT, AUTOMATED 372 10^3/uL (150-450); RED BLOOD COUNT 4.51 10^6/uL (4.00-5.40); WHITE BLOOD COUNT 6.8 10^3/uL (4.0-10.0)
[2023-07-24 14:40] LABS: ALBUMIN 3.7 G/DL (3.2-5.2); ALKALINE PHOSPHATASE 104 U/L (46-116); ALT/SGPT 27 U/L (7.0-40); AST/SGOT 16 U/L (<34); BILIRUBIN,TOTAL 0.9 MG/DL (0.3-1.2); BLOOD UREA NITROGEN 14 MG/DL (9-23); CALCIUM LEVEL 8.7 MG/DL (8.5-10.1); CARBON DIOXIDE LEVEL 28 MMOL/L (20-31); CHLORIDE LEVEL 105 MMOL/L (98-107); CHOLESTEROL LEVEL 202 MG/DL (<200); CHOLESTEROL RISK RATIO 2.06 (<5); CREATININE FOR GFR 0.54 MG/DL (0.55-1.30); GLOMERULAR FILTRATION RATE > 60.0 (>60); GLUCOSE, FASTING 88 MG/DL (60-100); HDL CHOLESTEROL 97.7 MG/DL (>40); LDL CHOLESTEROL 95.1 MG/DL (<100); NON-HDL-C 104.3 MG/DL; POTASSIUM SERUM 4.4 MMOL/L (3.5-5.1); SODIUM LEVEL 139 MMOL/L (136-145); THYROID STIMULATING HORMONE 2.155 uIU/ML (0.55-4.78); TOTAL 25(OH) VITAMIN D 38.3 NG/ML (20.0-100.0); TOTAL PROTEIN 6.9 G/DL (5.7-8.2); TRIGLYCERIDES LEVEL 46 MG/DL (<150)
[2023-07-24 15:03] LABS: HEMOGLOBIN A1c 4.9 % (4.0-6.0)
== END ==
LOC: M LAB REF 13:41
PROVIDERS: ATTEND Nurse Practitioner Family
DX: E03.9 Hypothyroidism, unspecified (principal)

== ENCOUNTER → 2023-10-31 | Outpatient (REF) | payer OTHER ==
[2023-10-31 12:20] LABS: THYROID STIMULATING HORMONE 0.22 uIU/ML (0.55-4.78)
[2023-10-31 12:21] LABS: FREE T4 0.88 NG/DL (0.89-1.76)
== END ==
LOC: M LAB REF 10:18
PROVIDERS: ATTEND Nurse Practitioner Family
DX: E03.9 Hypothyroidism, unspecified (principal); R63.8 Other symptoms and signs concerning food and fluid intake

== ENCOUNTER → 2023-12-19 | Outpatient (REF) | payer OTHER ==
[2023-12-19 14:29] LABS: THYROID STIMULATING HORMONE 0.095 uIU/ML (0.55-4.78)
[2023-12-19 14:30] LABS: FREE T4 0.96 NG/DL (0.89-1.76)
== END ==
LOC: M LAB REF 12:55
PROVIDERS: ATTEND Nurse Practitioner Family
DX: E03.9 Hypothyroidism, unspecified (principal)

== ENCOUNTER → 2024-02-20 | Outpatient (CLI) | payer OTHER ==
[~2024-02-20] MED LIST changes: +FLUO-365 PO; -FLUO20CA22 PO
== END ==
LOC: M RAD 15:22
PROVIDERS: ATTEND Nurse Practitioner Family
DX: E03.9 Hypothyroidism, unspecified (principal); E04.2 Nontoxic multinodular goiter

== ENCOUNTER → 2024-03-25 | Outpatient (REF) | payer OTHER ==
[2024-03-25 15:38] LABS: THYROID STIMULATING HORMONE 3.867 uIU/ML (0.55-4.78)
[2024-03-25 15:39] LABS: FREE T4 0.87 NG/DL (0.89-1.76)
== END ==
LOC: M LAB REF 13:42
PROVIDERS: ATTEND Nurse Practitioner Family
DX: E03.9 Hypothyroidism, unspecified (principal)

== ENCOUNTER → 2024-04-02 | Outpatient (REF) | payer OTHER ==
[2024-04-02 13:59] LABS: ALBUMIN 3.8 G/DL (3.2-5.2); ALKALINE PHOSPHATASE 91 U/L (46-116); ALT/SGPT 22 U/L (7.0-40); AST/SGOT 15 U/L (<34); BILIRUBIN,TOTAL 1.1 MG/DL (0.3-1.2); BLOOD UREA NITROGEN 14 MG/DL (9-23); CALCIUM LEVEL 8.5 MG/DL (8.5-10.1); CARBON DIOXIDE LEVEL 27 MMOL/L (20-31); CHLORIDE LEVEL 108 MMOL/L (98-107); CREATININE FOR GFR 0.54 MG/DL (0.55-1.30); GLOMERULAR FILTRATION RATE > 60.0 (>60); GLUCOSE, FASTING 88 MG/DL (60-100); POTASSIUM SERUM 4.4 MMOL/L (3.5-5.1); SODIUM LEVEL 140 MMOL/L (136-145)
== END ==
LOC: M LAB REF 12:33
PROVIDERS: ATTEND Nurse Practitioner Family
DX: E16.2 Hypoglycemia, unspecified (principal)

== ENCOUNTER → 2024-05-28 | Outpatient (CLI) | payer OTHER ==
[2024-05-28 12:40] LABS: THYROID STIMULATING HORMONE 9.832 uIU/ML (0.55-4.78)
[2024-05-28 13:04] LABS: FREE T4 0.88 NG/DL (0.89-1.76)
== END ==
LOC: M LAB 11:38
PROVIDERS: ATTEND Nurse Practitioner Family
DX: E06.3 Autoimmune thyroiditis (principal)

== ENCOUNTER → 2024-09-05 | Outpatient (CLI) | payer OTHER ==
[2024-09-05 11:46] LABS: FREE T4 1.56 NG/DL (0.89-1.76); THYROID STIMULATING HORMONE 0.416 uIU/ML (0.55-4.78)
== END ==
LOC: M LAB 09:14
PROVIDERS: ATTEND Nurse Practitioner Family
DX: E06.3 Autoimmune thyroiditis (principal)

== ENCOUNTER → 2025-02-27 | Outpatient (REF) | payer OTHER ==
[2025-02-27 18:29] LABS: BASO # 0.1 10^3/uL (0.0-0.2); BASO % 0.9 % (0.0-1.0); EOS # 0.2 10^3/uL (0.0-0.5); EOS % 2.2 % (0.0-3.0); LYMPH # 1.6 10^3/uL (1.5-5.0); LYMPH % 20.0 % (24.0-44.0); MONO # 0.9 10^3/uL (0.0-0.8); MONO % 11.2 % (2.0-8.0); NEUTROPHILS # 5.3 10^3/uL (1.5-8.5); NEUTROPHILS % 65.3 % (36.0-66.0); PLATELET COUNT, AUTOMATED 499 10^3/uL (150-450)
[2025-02-27 18:40] LABS: ESTIMATED AVERAGE GLUCOSE 100.0 MG/DL (60-110)
[2025-02-27 18:55] LABS: ALT/SGPT 19 U/L (7.0-40); AST/SGOT 23 U/L (<34); CALCIUM LEVEL 9.6 MG/DL (8.5-10.1); CARBON DIOXIDE LEVEL 26 MMOL/L (20-31); CHLORIDE LEVEL 105 MMOL/L (98-107); CHOLESTEROL LEVEL 196 MG/DL (<200); CHOLESTEROL RISK RATIO 2.26 (<5); CREATININE FOR GFR 0.75 MG/DL (0.55-1.30); GLOMERULAR FILTRATION RATE > 90.0 (>60); LDL CHOLESTEROL 95.4 MG/DL (<100); MAGNESIUM LEVEL 2.2 MG/DL (1.8-2.4); NON-HDL-C 109.6 MG/DL; POTASSIUM SERUM 5.0 MMOL/L (3.5-5.1); SODIUM LEVEL 143 MMOL/L (136-145); TOTAL 25(OH) VITAMIN D 72.1 NG/ML (20.0-100.0); TRIGLYCERIDES LEVEL 71 MG/DL (<150)
== END ==
LOC: M LAB REF 17:11
PROVIDERS: ATTEND Nurse Practitioner Family
DX: E55.9 Vitamin D deficiency, unspecified (principal); E66.9 Obesity, unspecified

== ENCOUNTER → 2025-04-15 | Outpatient (CLI) | payer OTHER ==
[2025-04-15 14:46] LABS: FREE T4 1.29 NG/DL (0.89-1.76)
== END ==
LOC: M LAB 12:32
PROVIDERS: ATTEND Nurse Practitioner Family
DX: E06.3 Autoimmune thyroiditis (principal)

== ENCOUNTER → 2025-07-21 | Outpatient (CLI) | payer OTHER ==
[2025-07-21 11:31] LABS: MAGNESIUM LEVEL 1.9 MG/DL (1.8-2.4)
[2025-07-21 11:33] LABS: IRON (FE) 124 UG/DL (50-170); PERCENT SATURATION 34.8 % (13.2-45.0)
[2025-07-21 11:41] LABS: VITAMIN B12 LEVEL 428 PG/ML (211-911)
== END ==
LOC: M LAB 10:22
PROVIDERS: ATTEND Nurse Practitioner Family
DX: Z86.39 Personal history of other endocrine, nutritional and metabolic disease (principal)